=== PATIENT | female | born 1945 | race Caucasian/White ===

== ENCOUNTER 2025-07-19 16:32 | Inpatient (IN) ==
[2025-07-19] MEDS: CEFEPIME 2000MG 2,000 MG/20 ML SYR IV STA (16:59)
--- NOTE | 2025-07-19 17:02 | Emergency Department Note ---
History of Present Illness General Chief complaint: Illness Stated complaint: Illness Time Seen by Provider: 07/19/25 16:41 Source: EMS and old records reviewed Mode of arrival: EMS Limitations: altered mental status (h/o dementia ) History of Present Illness Patient is an 79-year-old female with history of aortic valve stenosis, cognitive impairment, peripheral vascular disease, RA, CKD, hypertension who presents for incontinence of urine and stool as well as fever at [facility] today. Tmax of 101.2 Fahrenheit. Patient is unable to provide any history currently due to underlying dementia. It is reported she was more confused than her baseline from staff. No reported trauma or head injury. Home Medications Medication Instructions Recorded Confirmed Type acetaminophen 325 mg tablet 650 mg PO Q4H PRN PAIN/FEVER 07/19/25 07/19/25 History (Tylenol) calcium 600 mg (as 2 tab PO DAILY 07/19/25 07/19/25 History carbonate)-vitamin D3 10 mcg (400 unit) tablet (Calcium 600 + D(3)) fluoxetine 20 mg capsule 20 mg PO DAILY 07/19/25 07/19/25 History furosemide 40 mg tablet 40 mg PO DAILY 07/19/25 07/19/25 History loperamide 2 mg capsule 2 mg PO Q8H PRN AFTER LOOSE STOOLS 07/19/25 07/19/25 History losartan 25 mg tablet 25 mg PO DAILY 07/19/25 07/19/25 History melatonin 5 mg capsule 5 mg PO HS 07/19/25 07/19/25 History multivitamin 1 tab PO DAILY 07/19/25 07/19/25 History oxymetazoline 0.05 % nasal spray 2 spray intranasal QID PRN NOSE 07/19/25 07/19/25 History (Nasal Decongestant BLEEDS (oxymetazoline)) potassium chloride 20 mEq 20 meq PO DAILY 07/19/25 07/19/25 History tablet,extended release(part/cryst) sodium chloride 0.65 % nasal spray 1 spray intranasal 5XD 07/19/25 07/19/25 History aerosol (Saline Nasal) Allergies Allergy/AdvReac Type Severity Reaction Status Date / Time BENITO Inhibitors Allergy Unknown ON Verified 07/19/25 20:26 [facility] flecainide Allergy Unknown ON Verified 07/19/25 20:26 [facility] Past Med/Surg History Problem List (Updated 07/20/25 @ 16:02 by Reinaldo Thompson MD) Fever (Acute) Medical History Anticoagulated on Coumadin Social History Smoking Status: Unknown if ever smoked Preferred Language: [place] Communication Ability: Effective Armament Repairer Required: No Beliefs That Will Affect Care: None Current Living Situation: Personal Care Facility Feels Safe at Home: Yes Assistive Devices: None Review of Systems Unable to obtain ROS secondary to underlying dementia and altered mental status Physical Exam Vital Signs Vital Signs - 24 hr 07/19/25 16:37 07/19/25 17:05 07/19/25 18:18 Temperature 38.5 C H Temperature Source Oral Pulse Rate 78 76 75 Pulse Rate from SpO2 Sensor 77 Respiratory Rate 20 22 Respiratory Effort / Characteristics Non-Labored Spontaneous Respiratory Depth Normal Respiratory Pattern Regular Blood Pressure 125/90 Blood Pressure Mean 101 Pulse Oximetry 92 90 Oxygen Delivery Method Room Air Room Air Oxygen Flow Rate Sepsis Recent Fever Within 48 Hours Yes Sepsis New/Unexplained Change in Mental Status Yes Sepsis Action Taken by Nursing Physician Notified Oxygen Flow Rate - Titration Pulse Oximetry Post Tiitration 07/19/25 18:30 07/19/25 18:33 07/19/25 18:34 Temperature Temperature Source Pulse Rate 75 75 Pulse Rate from SpO2 Sensor 75 75 Respiratory Rate 26 H 24 Respiratory Effort / Characteristics Respiratory Depth Respiratory Pattern Blood Pressure 98/55 L Blood Pressure Mean 70 Pulse Oximetry 91 90 Oxygen Delivery Method Room Air Room Air Oxygen Flow Rate Sepsis Recent Fever Within 48 Hours Sepsis New/Unexplained Change in Mental Status Sepsis Action Taken by Nursing Oxygen Flow Rate - Titration Pulse Oximetry Post Tiitration 07/19/25 18:34 07/19/25 18:34 07/19/25 18:34 Temperature Temperature Source Pulse Rate Pulse Rate from SpO2 Sensor Respiratory Rate Respiratory Effort / Characteristics Respiratory Depth Respiratory Pattern Blood Pressure 98/55 L 98/55 L 98/55 L Blood Pressure Mean 70 70 70 Pulse Oximetry Oxygen Delivery Method Oxygen Flow Rate Sepsis Recent Fever Within 48 Hours Sepsis New/Unexplained Change in Mental Status Sepsis Action Taken by Nursing Oxygen Flow Rate - Titration Pulse Oximetry Post Tiitration 07/19/25 18:34 07/19/25 18:36 07/19/25 18:42 Temperature Temperature Source Pulse Rate 75 75 Pulse Rate from SpO2 Sensor 76 75 Respiratory Rate 20 22 Respiratory Effort / Characteristics Respiratory Depth Respiratory Pattern Blood Pressure 98/55 L Blood Pressure Mean 70 Pulse Oximetry 89 L Oxygen Delivery Method Oxygen Flow Rate Sepsis Recent Fever Within 48 Hours Sepsis New/Unexplained Change in Mental Status Sepsis Action Taken by Nursing Oxygen Flow Rate - Titration Pulse Oximetry Post Tiitration 07/19/25 18:51 07/19/25 19:00 07/19/25 19:00 Temperature Temperature Source Pulse Rate 75 Pulse Rate from SpO2 Sensor 75 Respiratory Rate 22 Respiratory Effort / Characteristics Respiratory Depth Respiratory Pattern Blood Pressure 120/57 L 120/57 L Blood Pressure Mean 71 71 Pulse Oximetry 93 Oxygen Delivery Method Oxygen Flow Rate Sepsis Recent Fever Within 48 Hours Sepsis New/Unexplained Change in Mental Status Sepsis Action Taken by Nursing Oxygen Flow Rate - Titration Pulse Oximetry Post Tiitration 07/19/25 19:00 07/19/25 19:00 07/19/25 19:00 Temperature Temperature Source Pulse Rate Pulse Rate from SpO2 Sensor Respiratory Rate Respiratory Effort / Characteristics Respiratory Depth Respiratory Pattern Blood Pressure 120/57 L 120/57 L 120/57 L Blood Pressure Mean 71 71 71 Pulse Oximetry Oxygen Delivery Method Oxygen Flow Rate Sepsis Recent Fever Within 48 Hours Sepsis New/Unexplained Change in Mental Status Sepsis Action Taken by Nursing Oxygen Flow Rate - Titration Pulse Oximetry Post Tiitration 07/19/25 19:00 07/19/25 19:12 07/19/25 19:21 Temperature Temperature Source Pulse Rate 75 75 75 Pulse Rate from SpO2 Sensor 76 75 75 Respiratory Rate 20 22 22 Respiratory Effort / Characteristics Respiratory Depth Respiratory Pattern Blood Pressure Blood Pressure Mean Pulse Oximetry 89 L 90 90 Oxygen Delivery Method Oxygen Flow Rate Sepsis Recent Fever Within 48 Hours Sepsis New/Unexplained Change in Mental Status Sepsis Action Taken by Nursing Oxygen Flow Rate - Titration Pulse Oximetry Post Tiitration 07/19/25 19:30 07/19/25 19:30 07/19/25 19:30 Temperature Temperature Source Pulse Rate Pulse Rate from SpO2 Sensor Respiratory Rate Respiratory Effort / Characteristics Respiratory Depth Respiratory Pattern Blood Pressure 97/56 L 97/56 L 97/56 L Blood Pressure Mean 74 74 74 Pulse Oximetry Oxygen Delivery Method Oxygen Flow Rate Sepsis Recent Fever Within 48 Hours Sepsis New/Unexplained Change in Mental Status Sepsis Action Taken by Nursing Oxygen Flow Rate - Titration Pulse Oximetry Post Tiitration 07/19/25 19:30 07/19/25 19:30 07/19/25 19:30 Temperature Temperature Source Pulse Rate 75 Pulse Rate from SpO2 Sensor 76 Respiratory Rate 17 Respiratory Effort / Characteristics Respiratory Depth Respiratory Pattern Blood Pressure 97/56 L 97/56 L Blood Pressure Mean 74 74 Pulse Oximetry 89 L Oxygen Delivery Method Oxygen Flow Rate Sepsis Recent Fever Within 48 Hours Sepsis New/Unexplained Change in Mental Status Sepsis Action Taken by Nursing Oxygen Flow Rate - Titration Pulse Oximetry Post Tiitration 07/19/25 19:42 07/19/25 19:51 07/19/25 19:51 Temperature Temperature Source Pulse Rate 75 Pulse Rate from SpO2 Sensor 76 Respiratory Rate 21 Respiratory Effort / Characteristics Respiratory Depth Respiratory Pattern Blood Pressure 93/62 L 93/62 L Blood Pressure Mean 68 68 Pulse Oximetry 90 Oxygen Delivery Method Oxygen Flow Rate Sepsis Recent Fever Within 48 Hours Sepsis New/Unexplained Change in Mental Status Sepsis Action Taken by Nursing Oxygen Flow Rate - Titration Pulse Oximetry Post Tiitration 07/19/25 19:51 07/19/25 19:51 07/19/25 19:51 Temperature Temperature Source Pulse Rate Pulse Rate from SpO2 Sensor Respiratory Rate Respiratory Effort / Characteristics Respiratory Depth Respiratory Pattern Blood Pressure 93/62 L 93/62 L 93/62 L Blood Pressure Mean 68 68 68 Pulse Oximetry Oxygen Delivery Method Oxygen Flow Rate Sepsis Recent Fever Within 48 Hours Sepsis New/Unexplained Change in Mental Status Sepsis Action Taken by Nursing Oxygen Flow Rate - Titration Pulse Oximetry Post Tiitration 07/19/25 19:51 07/19/25 20:00 07/19/25 20:01 Temperature Temperature Source Pulse Rate 75 77 Pulse Rate from SpO2 Sensor 75 75 Respiratory Rate 19 17 Respiratory Effort / Characteristics Respiratory Depth Respiratory Pattern Blood Pressure 94/58 L Blood Pressure Mean 68 Pulse Oximetry 93 96 Oxygen Delivery Method Oxygen Flow Rate Sepsis Recent Fever Within 48 Hours Sepsis New/Unexplained Change in Mental Status Sepsis Action Taken by Nursing Oxygen Flow Rate - Titration Pulse Oximetry Post Tiitration 07/19/25 20:01 07/19/25 20:01 07/19/25 20:01 Temperature Temperature Source Pulse Rate Pulse Rate from SpO2 Sensor Respiratory Rate Respiratory Effort / Characteristics Respiratory Depth Respiratory Pattern Blood Pressure 94/58 L 94/58 L 94/58 L Blood Pressure Mean 68 68 68 Pulse Oximetry Oxygen Delivery Method Oxygen Flow Rate Sepsis Recent Fever Within 48 Hours Sepsis New/Unexplained Change in Mental Status Sepsis Action Taken by Nursing Oxygen Flow Rate - Titration Pulse Oximetry Post Tiitration 07/19/25 20:01 07/19/25 20:12 07/19/25 20:21 Temperature Temperature Source Pulse Rate 75 77 Pulse Rate from SpO2 Sensor 74 77 Respiratory Rate 23 18 Respiratory Effort / Characteristics Respiratory Depth Respiratory Pattern Blood Pressure 94/58 L Blood Pressure Mean 68 Pulse Oximetry 97 96 Oxygen Delivery Method Oxygen Flow Rate Sepsis Recent Fever Within 48 Hours Sepsis New/Unexplained Change in Mental Status Sepsis Action Taken by Nursing Oxygen Flow Rate - Titration Pulse Oximetry Post Tiitration 07/19/25 20:30 07/19/25 20:31 07/19/25 20:31 Temperature Temperature Source Pulse Rate 75 Pulse Rate from SpO2 Sensor 75 Respiratory Rate 24 Respiratory Effort / Characteristics Respiratory Depth Respiratory Pattern Blood Pressure 82/49 L 82/49 L Blood Pressure Mean 62 62 Pulse Oximetry 97 Oxygen Delivery Method Oxygen Flow Rate Sepsis Recent Fever Within 48 Hours Sepsis New/Unexplained Change in Mental Status Sepsis Action Taken by Nursing Oxygen Flow Rate - Titration Pulse Oximetry Post Tiitration 07/19/25 20:31 07/19/25 20:31 07/19/25 20:31 Temperature Temperature Source Pulse Rate Pulse Rate from SpO2 Sensor Respiratory Rate Respiratory Effort / Characteristics Respiratory Depth Respiratory Pattern Blood Pressure 82/49 L 82/49 L 82/49 L Blood Pressure Mean 62 62 62 Pulse Oximetry Oxygen Delivery Method Oxygen Flow Rate Sepsis Recent Fever Within 48 Hours Sepsis New/Unexplained Change in Mental Status Sepsis Action Taken by Nursing Oxygen Flow Rate - Titration Pulse Oximetry Post Tiitration 07/19/25 20:42 07/19/25 20:42 07/19/25 20:42 Temperature Temperature Source Pulse Rate 75 75 Pulse Rate from SpO2 Sensor 75 Respiratory Rate 22 Respiratory Effort / Characteristics Respiratory Depth Respiratory Pattern Blood Pressure 90/56 L Blood Pressure Mean 74 Pulse Oximetry 97 Oxygen Delivery Method Oxygen Flow Rate Sepsis Recent Fever Within 48 Hours Sepsis New/Unexplained Change in Mental Status Sepsis Action Taken by Nursing Oxygen Flow Rate - Titration Pulse Oximetry Post Tiitration 07/19/25 20:42 07/19/25 20:42 07/19/25 20:42 Temperature Temperature Source Pulse Rate Pulse Rate from SpO2 Sensor Respiratory Rate Respiratory Effort / Characteristics Respiratory Depth Respiratory Pattern Blood Pressure 90/56 L 90/56 L 90/56 L Blood Pressure Mean 74 74 74 Pulse Oximetry Oxygen Delivery Method Oxygen Flow Rate Sepsis Recent Fever Within 48 Hours Sepsis New/Unexplained Change in Mental Status Sepsis Action Taken by Nursing Oxygen Flow Rate - Titration Pulse Oximetry Post Tiitration 07/19/25 20:42 07/19/25 20:51 07/19/25 21:00 Temperature Temperature Source Pulse Rate 75 75 Pulse Rate from SpO2 Sensor 75 75 Respiratory Rate 24 19 Respiratory Effort / Characteristics Respiratory Depth Respiratory Pattern Blood Pressure 90/56 L Blood Pressure Mean 74 Pulse Oximetry 97 96 Oxygen Delivery Method Oxygen Flow Rate Sepsis Recent Fever Within 48 Hours Sepsis New/Unexplained Change in Mental Status Sepsis Action Taken by Nursing Oxygen Flow Rate - Titration Pulse Oximetry Post Tiitration 07/19/25 21:01 07/19/25 21:01 07/19/25 21:01 Temperature Temperature Source Pulse Rate Pulse Rate from SpO2 Sensor Respiratory Rate Respiratory Effort / Characteristics Respiratory Depth Respiratory Pattern Blood Pressure 88/56 L 88/56 L 88/56 L Blood Pressure Mean 61 61 61 Pulse Oximetry Oxygen Delivery Method Oxygen Flow Rate Sepsis Recent Fever Within 48 Hours Sepsis New/Unexplained Change in Mental Status Sepsis Action Taken by Nursing Oxygen Flow Rate - Titration Pulse Oximetry Post Tiitration 07/19/25 21:01 07/19/25 21:01 07/19/25 21:12 Temperature Temperature Source Pulse Rate 75 Pulse Rate from SpO2 Sensor 76 Respiratory Rate 17 Respiratory Effort / Characteristics Respiratory Depth Respiratory Pattern Blood Pressure 88/56 L 88/56 L Blood Pressure Mean 61 61 Pulse Oximetry 93 Oxygen Delivery Method Oxygen Flow Rate Sepsis Recent Fever Within 48 Hours Sepsis New/Unexplained Change in Mental Status Sepsis Action Taken by Nursing Oxygen Flow Rate - Titration Pulse Oximetry Post Tiitration 07/19/25 21:21 07/19/25 21:27 07/19/25 21:29 Temperature Temperature Source Pulse Rate 75 75 Pulse Rate from SpO2 Sensor 75 76 Respiratory Rate 22 22 Respiratory Effort / Characteristics Respiratory Depth Respiratory Pattern Blood Pressure 99/54 L Blood Pressure Mean 68 Pulse Oximetry 96 95 Oxygen Delivery Method Oxygen Flow Rate Sepsis Recent Fever Within 48 Hours Sepsis New/Unexplained Change in Mental Status Sepsis Action Taken by Nursing Oxygen Flow Rate - Titration Pulse Oximetry Post Tiitration 07/19/25 21:30 07/19/25 21:30 07/19/25 21:30 Temperature Temperature Source Pulse Rate Pulse Rate from SpO2 Sensor Respiratory Rate Respiratory Effort / Characteristics Respiratory Depth Respiratory Pattern Blood Pressure 98/62 L 98/62 L 98/62 L Blood Pressure Mean 74 74 74 Pulse Oximetry Oxygen Delivery Method Oxygen Flow Rate Sepsis Recent Fever Within 48 Hours Sepsis New/Unexplained Change in Mental Status Sepsis Action Taken by Nursing Oxygen Flow Rate - Titration Pulse Oximetry Post Tiitration 07/19/25 21:30 07/19/25 21:30 07/19/25 21:30 Temperature Temperature Source Pulse Rate 75 Pulse Rate from SpO2 Sensor 76 Respiratory Rate 20 Respiratory Effort / Characteristics Respiratory Depth Respiratory Pattern Blood Pressure 98/62 L 98/62 L Blood Pressure Mean 74 74 Pulse Oximetry 96 Oxygen Delivery Method Oxygen Flow Rate Sepsis Recent Fever Within 48 Hours Sepsis New/Unexplained Change in Mental Status Sepsis Action Taken by Nursing Oxygen Flow Rate - Titration Pulse Oximetry Post Tiitration 07/19/25 21:35 07/19/25 21:42 07/19/25 21:51 Temperature Temperature Source Pulse Rate 75 75 Pulse Rate from SpO2 Sensor 75 75 Respiratory Rate 22 22 Respiratory Effort / Characteristics Respiratory Depth Respiratory Pattern Blood Pressure Blood Pressure Mean Pulse Oximetry 88 L 95 92 Oxygen Delivery Method Room Air Oxygen Flow Rate 0 Sepsis Recent Fever Within 48 Hours Sepsis New/Unexplained Change in Mental Status Sepsis Action Taken by Nursing Oxygen Flow Rate - Titration 2 Pulse Oximetry Post Tiitration 92 See below Constitutional WD/WN, vitals as above Eyes PERRL, conjunctivae normal, anicteric sclerae ENMT external ear and nose normal, oropharynx normal Respiratory normal respiratory effort, lungs clear to auscultation Cardiovascular RRR, no murmur, no edema Chest (Breasts) normal inspection/palpation of breasts Gastrointestinal (Abdomen) normal bowel sounds, soft, nontender, no hepatosplenomegaly Musculoskeletal no cyanosis or clubbing, extremities motor strength 5/5 Skin no rashes, warm and dry Neurologic awake and + confused; no focal motor deficit Speech / Cognition: normal speech Course Administered Medications Calcium/Vitamin D (Calcium 600mg + Vit D 400 Iu Tab) 2 tab PO DAILY [facility] Stop: 08/19/25 08:59 Last Admin: 07/20/25 11:09 Dose: 2 tab Documented By: sandeep Fluoxetine HCl (Fluoxetine Hcl 20 Mg Cap) 20 mg PO DAILY RICKY Stop: 08/19/25 08:59 Last Admin: 07/20/25 11:09 Dose: 20 mg Documented By: sandeep Furosemide (Furosemide 40 Mg Tab) 40 mg PO DAILY RICKY Stop: 08/19/25 08:59 Last Admin: 07/20/25 11:11 Dose: 40 mg Documented By: sandeep Heparin Sodium (Porcine) (Heparin Sod 5,000 Unit/0.5 Ml Vial) 5,000 units SQ Q12 RICKY Stop: 08/19/25 08:59 Last Admin: 07/20/25 11:10 Dose: 5,000 units Documented By: sandeep Multivitamins (Multivitamin Tab) 1 tab PO DAILY RICKY Stop: 08/19/25 08:59 Last Admin: 07/20/25 11:10 Dose: 1 tab Documented By: sandeep Potassium Chloride (Potassium Chloride Crtab 20 Meq Tabcr) 20 meq PO DAILY RICKY Stop: 08/19/25 08:59 Last Admin: 07/20/25 11:11 Dose: 20 meq Documented By: sandeep Sodium Chloride (Sodium Chloride 0.65% Na Soln 45 Ml ([place])) 1 sprays NA [id number] [facility] Stop: 08/19/25 00:45 Last Admin: 07/20/25 15:14 Dose: 1 sprays Documented By: Admin: 07/20/25 14:35 Dose: 1 sprays Documented By: sandeep Admin: 07/20/25 11:09 Dose: 1 sprays Documented By: sandeep Admin: 07/20/25 03:31 Dose: Not Given Documented By: NATASHA Discontinued Medications Sodium Chloride (Nss) 1,000 mls @ 999 mls/hr IV .Q1H1M [facility] Stop: 07/19/25 18:00 Last Infusion: 07/19/25 18:36 Dose: Infused Documented By: Admin: 07/19/25 17:05 Dose: 999 mls/hr Documented By: KIM Cefepime HCl (Maxipime 2000mg) 2,000 mg in 20 mls @ 5 mls/min IV NOW STA; Protocol Stop: 07/19/25 16:54 Last Admin: 07/19/25 16:59 Dose: 5 mls/min Documented By: KIM Acetaminophen (Ofirmev) 1,000 mg in 100 mls @ 400 mls/hr IV NOW STA Stop: 07/19/25 17:19 Last Infusion: 07/19/25 17:40 Dose: Infused Documented By: Admin: 07/19/25 17:13 Dose: 400 mls/hr Documented By: KIM Sodium Chloride (Nss) 250 mls @ 999 mls/hr IV .Q16M ONE Stop: 07/19/25 22:10 Last Infusion: 07/19/25 22:53 Dose: Infused Documented By: Admin: 07/19/25 22:20 Dose: 999 mls/hr Documented By: MILLY Dextrose/Sodium Chloride (D5w And 1/2nss) 1,000 mls @ 50 mls/hr IV .Q20H RICKY Stop: 07/20/25 20:45 Last Infusion: 07/20/25 15:13 Dose: Infused Documented By: Admin: 07/20/25 02:18 Dose: 50 mls/hr Documented By: NATASHA Ioversol (Optiray 320 100ml) 93 ml IV ONCE ONE Stop: 07/19/25 18:09 Last Admin: 07/19/25 18:09 Dose: 93 ml Documented By: LESA Medical Decision Making Differential Diagnosis DDx includes but not limited to: sepsis, UTI, PNA, intra-abdominal infection, CHF exacerbation, NTEMI Medical Records Attestation: I reviewed the patient's medical records. Home Medications Current Medication List: was personally reviewed by me Laboratory Data Attestation: I reviewed the patient's lab results. 07/20/25 05:39 07/20/25 05:39 Lab Results 07/19/25 07/19/25 07/19/25 Range/Units 16:30 16:30 16:30 WBC (4.8-10.8) K/ul RBC (4.20-5.40) M/uL Hgb (12.0-16.0) g/dL Hct (37.0-47.0) % MCV (80.0-100.0) fL MCH (25.0-34.0) pg MCHC (32.0-36.0) g/dL RDW Std Deviation (36.4-46.3) fL RDW Coeff of Mikhail (11.5-14.5) % Plt Count (130-400) K/uL MPV (9.4-12.4) fL Immature Gran % (Auto) % Neut % (Auto) % Lymph % (Auto) % [place] % (Auto) % Eos % (Auto) % Baso % (Auto) % Neut # (Auto) (1.40-6.50) K/uL Lymph # (Auto) (1.20-3.40) K/uL [place] # (Auto) (0.11-0.59) K/uL Eos # (Auto) (0.00-0.50) K/uL Baso # (Auto) (0.00-0.20) K/uL Immature Gran # (Auto) (0.01-0.20) K/uL Sodium (136-145) mmol/L Potassium (3.5-5.1) mmol/L Chloride (98-107) mmol/L Carbon Dioxide (21-32) mmol/L Anion Gap (3-11) BUN (6-23) mg/dl Creatinine (0.6-1.2) mg/dl Est Cr Clr Drug Dosing eGFR BUN/Creatinine Ratio (10-20) Glucose (70-99(Fasting)) mg/dl Lactate (0.4-2.0) mmol/L Calcium (8.6-10.3) mg/dl Magnesium (1.7-2.4) mg/dl Total Bilirubin (0.2-1.0) mg/dl Direct Bilirubin (0-0.2) mg/dl AST (13-39) U/L ALT (7-52) U/L Alkaline Phosphatase (34-104) U/L Troponin I High Sens (0-14) pg/ml Total Protein (6.0-8.3) gm/dl Albumin (3.4-5.0) gm/dl Procalcitonin (0-0.5) ng/ml Adenovirus (PCR) Not Detected (NotDetected) B. pertussis DNA (PCR) Not Detected (NotDetected) B.parapertussis DNA PCR Not Detected (NotDetected) C. pneumoniae DNA (PCR) Not Detected (NotDetected) Coronavirus OC43 (PCR) Not Detected (NotDetected) Coronavirus HKU1 (PCR) Not Detected (NotDetected) Coronavirus 229E (PCR) Not Detected (NotDetected) SARS-CoV-2 (PCR) NEGATIVE Not Detected (Negative) Coronavirus NL63 (PCR) Not Detected (NotDetected) Human Metapneumovir PCR Not Detected (NotDetected) Influenza Type A (PCR) Negative Not Detected (Neg) Influenza Type B (PCR) Negative (Neg) M. pneumoniae (PCR) (NotDetected) Parainfluenza 1 (PCR) (NotDetected) Parainfluenza 2 (PCR) (NotDetected) Parainfluenza 3 (PCR) (NotDetected) Parainfluenza 4 (PCR) (NotDetected) RSV (RT-PCR) (Neg) RSV (PCR) (NotDetected) Entero/Rhino (PCR) (NotDetected) 07/19/25 07/19/25 07/19/25 Range/Units 16:30 16:56 19:14 WBC 9.51 (4.8-10.8) K/ul RBC 3.74 L (4.20-5.40) M/uL Hgb 12.6 (12.0-16.0) g/dL Hct 37.3 (37.0-47.0) % MCV 99.7 (80.0-100.0) fL MCH 33.7 (25.0-34.0) pg MCHC 33.8 (32.0-36.0) g/dL RDW Std Deviation 51.6 H (36.4-46.3) fL RDW Coeff of Mikhail 14.1 (11.5-14.5) % Plt Count 133 (130-400) K/uL MPV 9.9 (9.4-12.4) fL Immature Gran % (Auto) 0.4 % Neut % (Auto) 84.9 % Lymph % (Auto) 5.2 % [place] % (Auto) 9.3 % Eos % (Auto) 0.0 % Baso % (Auto) 0.2 % Neut # (Auto) 8.08 H (1.40-6.50) K/uL Lymph # (Auto) 0.49 L (1.20-3.40) K/uL [place] # (Auto) 0.88 H (0.11-0.59) K/uL Eos # (Auto) 0.00 (0.00-0.50) K/uL Baso # (Auto) 0.02 (0.00-0.20) K/uL Immature Gran # (Auto) 0.04 (0.01-0.20) K/uL Sodium 133 L (136-145) mmol/L Potassium 4.4 (3.5-5.1) mmol/L Chloride 101 (98-107) mmol/L Carbon Dioxide 19 L (21-32) mmol/L Anion Gap 13 H (3-11) BUN 22 (6-23) mg/dl Creatinine 1.09 (0.6-1.2) mg/dl Est Cr Clr Drug Dosing Not Reportable eGFR 51.36 BUN/Creatinine Ratio 20.2 H (10-20) Glucose 134 H (70-99(Fasting)) mg/dl Lactate 1.8 (0.4-2.0) mmol/L Calcium 9.7 (8.6-10.3) mg/dl Magnesium 2.0 (1.7-2.4) mg/dl Total Bilirubin 2.1 H (0.2-1.0) mg/dl Direct Bilirubin 0.7 H (0-0.2) mg/dl AST 30 (13-39) U/L ALT 11 (7-52) U/L Alkaline Phosphatase 66 (34-104) U/L Troponin I High Sens 44.9 H 55.9 H* D (0-14) pg/ml Total Protein 7.9 (6.0-8.3) gm/dl Albumin 4.6 (3.4-5.0) gm/dl Procalcitonin 0.07 (0-0.5) ng/ml Adenovirus (PCR) (NotDetected) B. pertussis DNA (PCR) (NotDetected) B.parapertussis DNA PCR (NotDetected) C. pneumoniae DNA (PCR) (NotDetected) Coronavirus OC43 (PCR) (NotDetected) Coronavirus HKU1 (PCR) (NotDetected) Coronavirus 229E (PCR) (NotDetected) SARS-CoV-2 (PCR) (Negative) Coronavirus NL63 (PCR) (NotDetected) Human Metapneumovir PCR (NotDetected) Influenza Type A (PCR) (Neg) Influenza Type B (PCR) Not Detected (Neg) M. pneumoniae (PCR) Not Detected (NotDetected) Parainfluenza 1 (PCR) Not Detected (NotDetected) Parainfluenza 2 (PCR) Not Detected (NotDetected) Parainfluenza 3 (PCR) Not Detected (NotDetected) Parainfluenza 4 (PCR) Not Detected (NotDetected) RSV (RT-PCR) Negative (Neg) RSV (PCR) Not Detected (NotDetected) Entero/Rhino (PCR) Not Detected (NotDetected) ECG Data Attestation: I personally reviewed and interpreted this ECG as follows: Indication: + altered mental status Rate (beats per minute): 75 Rhythm: + other (AV paced rhythm ) ECG Intervals/blocks: + IVCD, + Prolonged QT and + Normal IA ECG [place]: + Right axis deviation ECG ST segments: + Normal ST segments Comparison ECG Date: no prior available Blood Pressure Blood Pressure Findings: Normal blood pressure MDM Narrative Impression & Plan Fever Discharge Plan Visit Data Chief Complaint: Illness Stated Complaint: Illness ED Provider: Reinaldo Thompson Discharge Problem: Fever Patient Disposition: Admitted As Inpatient Condition: Good Discharge Instructions Interventions: ED Discharge Assessment Last Done: 07/20/25 00:48
[2025-07-19] MEDS: SODIUM CHLORIDE 0.9% 1,000 ML IV SCH (17:05)
[2025-07-19 17:11] LABS: Hematocrit (blood only) 37.3 % (37.0-47.0); Hemoglobin 12.6 g/dL (12.0-16.0); Immature Granulocytes # (auto) 0.04 K/uL (0.01-0.20); Immature Granulocytes % (auto) 0.4 %; Mean Corpuscular Hemoglobin 33.7 pg (25.0-34.0); Mean Corpuscular Volume 99.7 fL (80.0-100.0); Platelet Count 133 K/uL (130-400); RDW Standard Deviation 51.6 fL (36.4-46.3); Red Blood Count 3.74 M/uL (4.20-5.40); White Blood Count 9.51 K/ul (4.8-10.8)
[2025-07-19] MEDS: ACETAMINOPHEN 1,000 MG/100 ML VIAL IV STA (17:13)
[2025-07-19 17:18] LABS: Appearance Urine Clear (Clear); Bacteria Urine Automated None Seen (None Seen); Epithelial Cell Urine Auto 0-2 /hpf (0-2); Glucose Urine UA Negative (Negative); RBC Urine Automated 0-2 /hpf (0-2); WBC Urine Automated 0-5 /hpf (0-5)
[2025-07-19 17:29] LABS: Alanine Aminotransferase 11 U/L (7-52); Albumin Level 4.6 gm/dl (3.4-5.0); Alkaline Phosphatase 66 U/L (34-104); Anion Gap 13 (3-11); Bilirubin,Total 2.1 mg/dl (0.2-1.0); Blood Urea Nitrogen 22 mg/dl (6-23); Calcium 9.7 mg/dl (8.6-10.3); Carbon Dioxide 19 mmol/L (21-32); Chloride 101 mmol/L (98-107); Glucose 134 mg/dl (70-99(Fasting)); Magnesium 2.0 mg/dl (1.7-2.4); Potassium 4.4 mmol/L (3.5-5.1); Sodium 133 mmol/L (136-145); Total Protein 7.9 gm/dl (6.0-8.3)
[2025-07-19 17:32] LABS: Influenza A virus by PCR Negative (Neg); Influenza B virus by PCR Negative (Neg); SARS CoV2 RNA(COVID-19) Ceph NEGATIVE (Negative)
[2025-07-19] MEDS: OPTIRAY 320 100ml IV ONE (18:09)
[2025-07-19 18:36] LABS: Chlamydia pneumoniae PCR Not Detected (NotDetected); Coronavirus 229E PCR Not Detected (NotDetected); Coronavirus CoV-2 (COVID19)PCR Not Detected (NotDetected); Coronavirus HKU1 PCR Not Detected (NotDetected); Coronavirus NL63 PCR Not Detected (NotDetected); Coronavirus OC43PCR Not Detected (NotDetected); Human Metapneumovirus PCR Not Detected (NotDetected); Parainfluenza Virus 1 PCR Not Detected (NotDetected); Parainfluenza Virus 2 PCR Not Detected (NotDetected); Parainfluenza Virus 3 PCR Not Detected (NotDetected); Parainfluenza Virus 4 PCR Not Detected (NotDetected); Respiratory Syncytial VirusPCR Not Detected (NotDetected); Rhinovirus/Enterovirus PCR Not Detected (NotDetected)
--- NOTE | 2025-07-19 18:52 | XRay Report ---
EXAM: X-ray chest one-view portable CLINICAL HISTORY: Sepsis PRIORS: CT chest today TECHNIQUE: Frontal view chest FINDINGS: The chest is well-expanded. Severe enlargement of the cardiac silhouette with postsurgical change including median sternotomy wires, prostatic cardiac valve and pacing device. Low-dose Elevation of the right Silvestre diaphragm noted. Osseous demineralization seen. Trachea midline. Osseous structures demonstrate no acute abnormality. No radiopaque foreign body. IMPRESSION: Extreme enlargement of the cardiac silhouette. ACT 112: Positive. There are findings on this examination that require communication between the performing entity and the patient following Patient Test Result Information Act ([place] ACT 112) guidelines. Electronically signed by Bernarda Linares 07-19-2025 6:52 PM
--- NOTE | 2025-07-19 20:20 | CT Scan Report ---
CT of the chest with contrast Technique: Postcontrast axial images of the chest. Coronal and sagittal reformatted images made available for review No comparison Findings: Right chest wall dual-lead intracardiac device Marked cardiomegaly. Postoperative changes median sternotomy. Aortic valve calcification. 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 Mild interlobular septal thickening with diffuse ground glass opacities scattered throughout the lungs bilaterally. No effusions. No lobar consolidations. There are extensive right chest wall venous collaterals sugg consistent with occlusion of the right subclavian vein. The internal jugular vein is patent. Multilevel degenerative changes of the thoracic spine without fracture or dislocation. Impression Findings consistent with mild pulmonary edema. Electronically signed by Alli Kuo 07-19-2025 8:19 PM
--- NOTE | 2025-07-19 20:26 | CT Scan Report ---
CT of the abdomen and pelvis with contrast Technique: Postcontrast axial images of the abdomen and pelvis. Coronal and sagittal reformatted images made well for review. No comparison Findings: Hepatomegaly Splenomegaly. Mild intra-abdominal ascites. Distention of the IVC consistent with pulmonary vas congestion or right heart failure. Gallbladder is within normal limits. Cholelithiasis.Subcentimeter hypodensity left kidney too small for further density characterization but likely representing a cyst thickening of the left adrenal gland. Gastric varices present. Findings suggestive of portal hypertension. Moderate amount of stool within the colon. No free air or intestinal obstruction. Vascular calcifications. Remaining solid abdominal organs are unremarkable in appearance. Bone windows demonstrate no focal abnormality. Multilevel degenerative changes of the lower thoracic and lumbar spine. Impression: Unremarkable exam CT abdomen pelvis negative for acute intra-abdominal pathology Mild intra-abdominal ascites Findings consistent with mild portal hypertension with gastric varices. Electronically signed by Alli Kuo 07-19-2025 8:26 PM
[2025-07-19] MEDS: SODIUM CHLORIDE 0.9% 250 ML IV ONE (22:20)
[2025-07-20] MEDS ORDERED: ONDANSETRON INJ 2 MG/ML 2 ML VIAL IV PRN (00:46)
[2025-07-20] MEDS ORDERED: ACETAMINOPHEN 1,000 MG/100 ML VIAL IV PRN (00:46)
[2025-07-20] MEDS ORDERED: NITROGLYCERIN SL 0.4 MG/TAB TAB SL PRN (00:46)
[2025-07-20] MEDS ORDERED: OXYMETAZOLINE 0.05% 30 ML BTL PRN (00:46)
[2025-07-20] MEDS: D5W AND 1/2NSS 1,000 ML IV SCH (02:18)
[2025-07-20] MEDS: SODIUM CHLORIDE 0.65% NA SOLN 45 ML (OCEAN) SCH (03:31)
--- NOTE | 2025-07-20 05:04 | History & Physical Report ---
Date of Service July 19, 2025 Assessment & Plan (1) Fever: Plan: 79-year-old female with past medical history significant for congenital stenosis of aortic valve, peripheral vascular disease, rheumatoid arthritis, chronic kidney disease, hypertension, osteoarthritis, history of a flutter, s/p cardiac pacemaker, history of mechanical heart valve who is currently living at dementia unit in [facility] was brought in because of fevers and diarrhea. As per intermediate patient was having fevers today and also incontinent of the stool and nauseous but no vomiting which prompted the intermediate to send the patient to the ER. As per intermediate the patient knows her name and sometimes knows the place. Ambulates without support. Eats okay. Currently patient tell her name. Denies any pain. Could not get any history from the patient. Able to update son later in am. Fevers Diarrhea Respiratory BioFire negative UA negative CT chest and CT abdomen pelvis no acute findings Procalcitonin negative Received empiric cefepime in the ER Will follow cultures Will follow stool sample Gentle fluids IV Tylenol. Close monitor Dementia Currently residing at dementia unit in [facility] Will monitor for delirium History of CHF Getting gentle fluids Continue home Lasix with potassium supplements Hypertension Holding losartan as blood pressure is soft On Lasix Will monitor History of mechanical valve replacement Used to be on Coumadin Checked with intermediate currently she is not on Coumadin Son not sure exactly but thinks had another surgery and valve replaced and thinks since then not on Coumadin Mild elevation of troponin Initial troponin 44 and repeat is 55 Will follow serial enzymes and echo Depression On fluoxetine DVT prophylaxis Heparin subcu Disposition Med/telemetry CODE STATUS DNR/DNI and comfort measures only but okay for antibiotics as per POLST form. Son confirms DNR. History of Present Illness Chief Complaint: Fevers and diarrhea Primary Care Provider: [facility] 79-year-old female with past medical history significant for congenital stenosis of aortic valve, peripheral vascular disease, rheumatoid arthritis, chronic kidney disease, hypertension, osteoarthritis, history of a flutter, s/p cardiac pacemaker, history of mechanical heart valve who is currently living at dementia unit in [facility] home was brought in because of fevers and diarrhea. As per intermediate patient was having fevers today and also incontinent of the stool and nauseous but no vomiting which prompted the intermediate to send the patient to the ER. As per intermediate the patient knows her name and sometimes knows the place. Ambulates without support. Eats okay. Currently patient tell her name. Denies any pain. Could not get any history from the patient. Able to update son later in am. Past medical history. As mentioned above. Past surgical history. Pacemaker. Social history. Unavailable Family history. No available Allergies Allergy/AdvReac Type Severity Reaction Status Date / Time BENITO Inhibitors Allergy Unknown ON Verified 07/19/25 20:26 [facility] flecainide Allergy Unknown ON Verified 07/19/25 20:26 [facility] Home Medications Medication Instructions Recorded Confirmed Type acetaminophen 325 mg tablet 650 mg PO Q4H PRN PAIN/FEVER 07/19/25 07/19/25 History (Tylenol) calcium 600 mg (as 2 tab PO DAILY 07/19/25 07/19/25 History carbonate)-vitamin D3 10 mcg (400 unit) tablet (Calcium 600 + D(3)) fluoxetine 20 mg capsule 20 mg PO DAILY 07/19/25 07/19/25 History furosemide 40 mg tablet 40 mg PO DAILY 07/19/25 07/19/25 History loperamide 2 mg capsule 2 mg PO Q8H PRN AFTER LOOSE STOOLS 07/19/25 07/19/25 History losartan 25 mg tablet 25 mg PO DAILY 07/19/25 07/19/25 History melatonin 5 mg capsule 5 mg PO HS 07/19/25 07/19/25 History multivitamin 1 tab PO DAILY 07/19/25 07/19/25 History oxymetazoline 0.05 % nasal spray 2 spray intranasal QID PRN NOSE 07/19/25 07/19/25 History (Nasal Decongestant BLEEDS (oxymetazoline)) potassium chloride 20 mEq 20 meq PO DAILY 07/19/25 07/19/25 History tablet,extended release(part/cryst) sodium chloride 0.65 % nasal spray 1 spray intranasal 5XD 07/19/25 07/19/25 History aerosol (Saline Nasal) Past Med/Surg History Problem List (Updated 07/20/25 @ 05:06 by Danilo Rudolph MD) Fever Medical History Anticoagulated on Coumadin Social History Smoking Status: Unknown if ever smoked Preferred Language: Icelandic Communication Ability: Effective Case Management Director Required: No Beliefs That Will Affect Care: None Current Living Situation: Personal Care Facility Feels Safe at Home: Yes Assistive Devices: Oxygen - Continuous Review of Systems Review of Systems: Unobtainable due to cognitive status Physical Exam Physical Exam: General- Not in acute distress Head- atraumatic Eyes- PERRL. ENT- oropharynx clear Neck- supple, no JVD. Lungs- clear to auscultation no wheezing or crackles Heart- regular rhythm; no murmur, no gallop. Abdomen- normal bowel sounds, soft, nontender, no distension Extremities- no pretibial edema, no erythema seen Neuro- alert, oriented x 1;not obeying commands Results & Data Results & Data Vital Signs (Past 12 Hours) Vital Signs Temp Pulse Resp BP Pulse Ox O2 Del Method 07/19/25 21:42 75 22 95 07/19/25 21:30 75 20 96 07/19/25 21:30 98/62 L 07/19/25 21:30 98/62 L 07/19/25 21:30 98/62 L 07/19/25 21:30 98/62 L 07/19/25 21:30 98/62 L 07/19/25 21:29 99/54 L 07/19/25 21:27 75 22 95 07/19/25 21:21 75 22 96 07/19/25 21:12 75 17 93 07/19/25 21:01 88/56 L 07/19/25 21:01 88/56 L 07/19/25 21:01 88/56 L 07/19/25 21:01 88/56 L 07/19/25 21:01 88/56 L 07/19/25 21:00 75 19 96 07/19/25 20:51 75 24 97 07/19/25 20:42 90/56 L 07/19/25 20:42 90/56 L 07/19/25 20:42 90/56 L 07/19/25 20:42 90/56 L 07/19/25 20:42 90/56 L 07/19/25 20:42 75 22 97 07/19/25 20:42 75 07/19/25 20:31 82/49 L 07/19/25 20:31 82/49 L 07/19/25 20:31 82/49 L 07/19/25 20:31 82/49 L 07/19/25 20:31 82/49 L 07/19/25 20:30 75 24 97 07/19/25 20:21 77 18 96 07/19/25 20:12 75 23 97 07/19/25 20:01 94/58 L 07/19/25 20:01 94/58 L 07/19/25 20:01 94/58 L 07/19/25 20:01 94/58 L 07/19/25 20:01 94/58 L 07/19/25 20:00 77 17 96 07/19/25 19:51 75 19 93 07/19/25 19:51 93/62 L 07/19/25 19:51 93/62 L 07/19/25 19:51 93/62 L 07/19/25 19:51 93/62 L 07/19/25 19:51 93/62 L 07/19/25 19:42 75 21 90 07/19/25 19:30 75 17 89 L 07/19/25 19:30 97/56 L 07/19/25 19:30 97/56 L 07/19/25 19:30 97/56 L 07/19/25 19:30 97/56 L 07/19/25 19:30 97/56 L 07/19/25 19:21 75 22 90 07/19/25 19:12 75 22 90 07/19/25 19:00 75 20 89 L 07/19/25 19:00 120/57 L 07/19/25 19:00 120/57 L 07/19/25 19:00 120/57 L 07/19/25 19:00 120/57 L 07/19/25 19:00 120/57 L 07/19/25 18:51 75 22 93 07/19/25 18:42 75 22 89 L 07/19/25 18:36 75 20 07/19/25 18:34 98/55 L 07/19/25 18:34 98/55 L 07/19/25 18:34 98/55 L 07/19/25 18:34 98/55 L 07/19/25 18:34 98/55 L 07/19/25 18:33 75 24 90 Room Air 07/19/25 18:30 75 26 H 91 Room Air 07/19/25 18:18 75 22 90 Room Air 07/19/25 17:05 38.5 C H 76 20 125/90 92 Room Air 07/19/25 16:37 78 Diagnostic Findings Laboratory Results WBC 9.51 K/ul (4.8-10.8) 07/19/25 16:56 RBC 3.74 M/uL (4.20-5.40) L 07/19/25 16:56 Hgb 12.6 g/dL (12.0-16.0) 07/19/25 16:56 Hct 37.3 % (37.0-47.0) 07/19/25 16:56 MCV 99.7 fL (80.0-100.0) 07/19/25 16:56 MCH 33.7 pg (25.0-34.0) 07/19/25 16:56 MCHC 33.8 g/dL (32.0-36.0) 07/19/25 16:56 RDW Std Deviation 51.6 fL (36.4-46.3) H 07/19/25 16:56 RDW Coeff of Mikhail 14.1 % (11.5-14.5) 07/19/25 16:56 Plt Count 133 K/uL (130-400) 07/19/25 16:56 MPV 9.9 fL (9.4-12.4) 07/19/25 16:56 Immature Gran % (Auto) 0.4 % 07/19/25 16:56 Neut % (Auto) 84.9 % 07/19/25 16:56 Lymph % (Auto) 5.2 % 07/19/25 16:56 [place] % (Auto) 9.3 % 07/19/25 16:56 Eos % (Auto) 0.0 % 07/19/25 16:56 Baso % (Auto) 0.2 % 07/19/25 16:56 Neut # (Auto) 8.08 K/uL (1.40-6.50) H 07/19/25 16:56 Lymph # (Auto) 0.49 K/uL (1.20-3.40) L 07/19/25 16:56 [place] # (Auto) 0.88 K/uL (0.11-0.59) H 07/19/25 16:56 Eos # (Auto) 0.00 K/uL (0.00-0.50) 07/19/25 16:56 Baso # (Auto) 0.02 K/uL (0.00-0.20) 07/19/25 16:56 Immature Gran # (Auto) 0.04 K/uL (0.01-0.20) 07/19/25 16:56 Sodium 133 mmol/L (136-145) L 07/19/25 16:56 Potassium 4.4 mmol/L (3.5-5.1) 07/19/25 16:56 Chloride 101 mmol/L (98-107) 07/19/25 16:56 Carbon Dioxide 19 mmol/L (21-32) L 07/19/25 16:56 Anion Gap 13 (3-11) H 07/19/25 16:56 BUN 22 mg/dl (6-23) 07/19/25 16:56 Creatinine 1.09 mg/dl (0.6-1.2) 07/19/25 16:56 Est Cr Clr Drug Dosing Not Reportable 07/19/25 16:56 eGFR 51.36 07/19/25 16:56 BUN/Creatinine Ratio 20.2 (10-20) H 07/19/25 16:56 Glucose 134 mg/dl (70-99(Fasting)) H 07/19/25 16:56 Lactate 1.8 mmol/L (0.4-2.0) 07/19/25 19:14 Calcium 9.7 mg/dl (8.6-10.3) 07/19/25 16:56 Magnesium 2.0 mg/dl (1.7-2.4) 07/19/25 16:56 Total Bilirubin 2.1 mg/dl (0.2-1.0) H 07/19/25 16:56 Direct Bilirubin 0.7 mg/dl (0-0.2) H 07/19/25 16:56 AST 30 U/L (13-39) 07/19/25 16:56 ALT 11 U/L (7-52) 07/19/25 16:56 Alkaline Phosphatase 66 U/L (34-104) 07/19/25 16:56 Troponin I High Sens 55.9 pg/ml (0-14) H* D 07/19/25 19:14 Total Protein 7.9 gm/dl (6.0-8.3) 07/19/25 16:56 Albumin 4.6 gm/dl (3.4-5.0) 07/19/25 16:56 Procalcitonin 0.07 ng/ml (0-0.5) 07/19/25 16:56 Urine Color Yellow 07/19/25 Unknown Urine Appearance Clear (Clear) 07/19/25 Unknown Urine pH 6.5 (4.5-7.5) 07/19/25 Unknown Ur Specific [place] 1.010 (1.000-1.030) 07/19/25 Unknown Urine Protein 2+ (Negative) H 07/19/25 Unknown Urine Glucose (UA) Negative (Negative) 07/19/25 Unknown Urine Ketones Negative (Negative) 07/19/25 Unknown Urine Blood Negative (Negative) 07/19/25 Unknown Urine Nitrite Negative (Negative) 07/19/25 Unknown Urine Bilirubin Negative (Negative) 07/19/25 Unknown Urine Urobilinogen Negative (Negative) 07/19/25 Unknown Ur Leukocyte Esterase Negative (Negative) 07/19/25 Unknown Urine WBC (Auto) 0-5 /hpf (0-5) 07/19/25 Unknown Urine RBC (Auto) 0-2 /hpf (0-2) 07/19/25 Unknown U Hyaline Cast (Auto) 6-10 /lpf (0-2) H 07/19/25 Unknown U Epithel Cells (Auto) 0-2 /hpf (0-2) 07/19/25 Unknown Urine Bacteria (Auto) None Seen (None Seen) 07/19/25 Unknown Hyaline Casts Present /lpf (None Presnt) A 07/19/25 Unknown Urine Comment 07/19/25 Unknown Adenovirus (PCR) Not Detected (NotDetected) 07/19/25 16:30 B. pertussis DNA (PCR) Not Detected (NotDetected) 07/19/25 16:30 B.parapertussis DNA PCR Not Detected (NotDetected) 07/19/25 16:30 C. pneumoniae DNA (PCR) Not Detected (NotDetected) 07/19/25 16:30 Coronavirus OC43 (PCR) Not Detected (NotDetected) 07/19/25 16:30 Coronavirus HKU1 (PCR) Not Detected (NotDetected) 07/19/25 16:30 Coronavirus 229E (PCR) Not Detected (NotDetected) 07/19/25 16:30 SARS-CoV-2 (PCR) NEGATIVE (Negative) 07/19/25 16:30 SARS-CoV-2 (PCR) Not Detected (NotDetected) 07/19/25 16:30 Coronavirus NL63 (PCR) Not Detected (NotDetected) 07/19/25 16:30 Human Metapneumovir PCR Not Detected (NotDetected) 07/19/25 16:30 Influenza Type A (PCR) Negative (Neg) 07/19/25 16:30 Influenza Type A (PCR) Not Detected (NotDetected) 07/19/25 16:30 Influenza Type B (PCR) Negative (Neg) 07/19/25 16:30 Influenza Type B (PCR) Not Detected (NotDetected) 07/19/25 16:30 M. pneumoniae (PCR) Not Detected (NotDetected) 07/19/25 16:30 Parainfluenza 1 (PCR) Not Detected (NotDetected) 07/19/25 16:30 Parainfluenza 2 (PCR) Not Detected (NotDetected) 07/19/25 16:30 Parainfluenza 3 (PCR) Not Detected (NotDetected) 07/19/25 16:30 Parainfluenza 4 (PCR) Not Detected (NotDetected) 07/19/25 16:30 RSV (RT-PCR) Negative (Neg) 07/19/25 16:30 RSV (PCR) Not Detected (NotDetected) 07/19/25 16:30 Entero/Rhino (PCR) Not Detected (NotDetected) 07/19/25 16:30 Impressions Chest X-Ray 07/19/25 16:51 EXAM: X-ray chest one-view portable CLINICAL HISTORY: Sepsis PRIORS: CT chest today TECHNIQUE: Frontal view chest FINDINGS: The chest is well-expanded. Severe enlargement of the cardiac silhouette with postsurgical change including median sternotomy wires, prostatic cardiac valve and pacing device. Low-dose Elevation of the right Silvestre diaphragm noted. Osseous demineralization seen. Trachea midline. Osseous structures demonstrate no acute abnormality. No radiopaque foreign body. IMPRESSION: Extreme enlargement of the cardiac silhouette. ACT 112: Positive. There are findings on this examination that require communication between the performing entity and the patient following Patient Test Result Information Act ([place] ACT 112) guidelines. Electronically signed by Bernarda Linares 07-19-2025 6:52 PM Abdomen/Pelvis CT 07/19/25 17:37 CT of the abdomen and pelvis with contrast Technique: Postcontrast axial images of the abdomen and pelvis. Coronal and sagittal reformatted images made well for review. No comparison Findings: Hepatomegaly Splenomegaly. Mild intra-abdominal ascites. Distention of the IVC consistent with pulmonary vas congestion or right heart failure. Gallbladder is within normal limits. Cholelithiasis.Subcentimeter hypodensity left kidney too small for further density characterization but likely representing a cyst thickening of the left adrenal gland. Gastric varices present. Findings suggestive of portal hypertension. Moderate amount of stool within the colon. No free air or intestinal obstruction. Vascular calcifications. Remaining solid abdominal organs are unremarkable in appearance. Bone windows demonstrate no focal abnormality. Multilevel degenerative changes of the lower thoracic and lumbar spine. Impression: Unremarkable exam CT abdomen pelvis negative for acute intra-abdominal pathology Mild intra-abdominal ascites Findings consistent with mild portal hypertension with gastric varices. Electronically signed by Alli Kuo 07-19-2025 8:[address] 07/19/25 17:38 CT of the chest with contrast Technique: Postcontrast axial images of the chest. Coronal and sagittal reformatted images made available for review No comparison Findings: Right chest wall dual-lead intracardiac device Marked cardiomegaly. Postoperative changes median sternotomy. Aortic valve calcification. 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 Mild interlobular septal thickening with diffuse ground glass opacities scattered throughout the lungs bilaterally. No effusions. No lobar consolidations. There are extensive right chest wall venous collaterals sugg consistent with occlusion of the right subclavian vein. The internal jugular vein is patent. Multilevel degenerative changes of the thoracic spine without fracture or dislocation. Impression Findings consistent with mild pulmonary edema. Electronically signed by Alli Kuo 07-19-2025 8:19 PM ECG Additional Comments: ECG. AV dual paced rhythm rate of 75. Code Status & VTE Plan VTE Prophylaxis Plan VTE Prophylaxis will be ordered: Yes
[2025-07-20 06:25] LABS: Anion Gap 9.0 (3-11); Blood Urea Nitrogen 24.0 mg/dl (6-23); Calcium 8.9 mg/dl (8.6-10.3); Carbon Dioxide 22.0 mmol/L (21-32); Chloride 104.0 mmol/L (98-107); Creatinine Clr Calc Pharmacy 31.4 ml/min; Glucose 103.0 mg/dl (70-99(Fasting)); Magnesium 1.9 mg/dl (1.7-2.4); Potassium 3.9 mmol/L (3.5-5.1); Sodium 135.0 mmol/L (136-145)
[2025-07-20 06:53] LABS: Hematocrit (blood only) 33.7 % (37.0-47.0); Hemoglobin 11.2 g/dL (12.0-16.0); Immature Granulocytes # (auto) 0.06 K/uL (0.01-0.20); Immature Granulocytes % (auto) 0.6 %; Mean Corpuscular Hemoglobin 34.3 pg (25.0-34.0); Mean Corpuscular Volume 103.1 fL (80.0-100.0); Platelet Count 102 K/uL (130-400); RDW Standard Deviation 53.6 fL (36.4-46.3); Red Blood Count 3.27 M/uL (4.20-5.40); White Blood Count 10.87 K/ul (4.8-10.8)
[2025-07-20] MEDS ORDERED: LOSARTAN POTASSIUM 25 MG TAB PO SCH (09:00)
--- NOTE | 2025-07-20 09:31 | Hospitalist Progress Note ---
Date of Service July 20, 2025 Assessment & Plan (1) Fever: Plan: 79-year-old woman with PMH of congenital stenosis of aortic valve, peripheral vascular disease, rheumatoid arthritis, chronic kidney disease, hypertension, osteoarthritis, history of a flutter, s/p cardiac pacemaker, history of mechanical heart valve, dementia who is currently living at dementia unit in [facility] was brought in because of fevers and diarrhea. As per senior care patient was having fevers on day of presentation and also incontinent of the stool and nauseous but no vomiting which prompted the senior care to send the patient to the ER. At baseline, she is oriented to person and place, Ambulates without support. Fevers Diarrhea Respiratory BioFire negative UA negative CT chest and CT abdomen pelvis no acute findings Procalcitonin negative Received empiric cefepime in the ER Will follow cultures Get Stool PCR/C diff when patient has BM Infectious workup negative so far. Will continue to monitor off antibiotics Dementia Currently residing at dementia unit in [facility] Delirium precautions History of CHF IVF stopped Continue home Lasix with potassium supplements Hypertension Continue to hold losartan due to borderline BP On Lasix Monitor History of mechanical valve replacement (Now bioprosthetic based on TTE below) Used to be on Coumadin Admitting Provider checked with senior care that currently she is not on Coumadin Son not sure exactly but thinks had another surgery and valve replaced (likely bioprosthetic, as evidenced in TTE today) and thinks since then not on Coumadin Mild elevation of troponin Initial troponin 44-55 TTE noted mild conc LVH, borderline global hypokinesis of left ventricle, apical wall motion abnormality may reflect pacemaker activation, EF 45-50%, mod dil LA, mild dil RA, bioprosthetic AV, normal gradient for AV, no AR, trace MR, mild TR No prior TTE to compare Depression On fluoxetine DVT prophylaxis - Heparin subcu CODE STATUS DNR/DNI and comfort measures only but okay for antibiotics as per POLST form. I spent a total of 50 minutes coordinating, documenting and providing care for this patient excluding time spent in performance of separately billed services Admission and Anticipated Discharge Date Admission Date: July 19, 2025 Subjective Patient seen and examined She is alert and oriented to person only Has cognitive impairment which limits ROS Cooperative Physical Exam Constitutional: + well hydrated; no acute distress Eyes: PERRL, conjunctivae normal, anicteric sclerae ENMT: external ear and nose normal, oropharynx normal Respiratory: normal respiratory effort, lungs clear to auscultation Cardiovascular: Rate/Rhythm: regular rate and regular rhythm Gastrointestinal (Abdomen): normal bowel sounds, soft, nontender, no hepatosplenomegaly Musculoskeletal: No pedal edema Neurologic: PERRL, EOMI, accommodation nl, no face palsy, no dysarthria Psychiatric: Alert and oriented to person only Confused Results & Data Results & Data Vital Signs (Past 12 Hours) Vital Signs Temp Pulse Pulse Resp BP BP Pulse Ox 07/20/25 07:42 36.6 C 76 18 95/63 L 92 07/20/25 00:48 75 17 119/72 92 07/20/25 00:31 75 07/20/25 00:30 07/20/25 00:30 37.2 C 73 16 119/72 92 07/19/25 23:12 75 20 93 07/19/25 23:00 75 21 97 07/19/25 23:00 100/07/19/25 23:00 100/63 07/19/25 23:00 100/63 07/19/25 23:00 100/63 07/19/25 23:00 100/63 07/19/25 23:00 73 16 100/63 94 07/19/25 22:51 75 22 99 07/19/25 22:42 75 19 96 07/19/25 22:32 113/72 07/19/25 22:32 113/72 07/19/25 22:32 113/72 07/19/25 22:32 113/72 07/19/25 22:32 113/72 07/19/25 22:30 75 21 96 07/19/25 22:21 75 15 96 07/19/25 22:12 77 21 96 07/19/25 22:00 75 21 95 07/19/25 22:00 109/66 07/19/25 22:00 109/07/19/25 22:00 109/66 07/19/25 22:00 109/07/19/25 22:00 109/07/19/25 21:51 75 22 92 07/19/25 21:42 75 22 95 07/19/25 21:35 88 L O2 Del Method O2 Flow Rate 07/20/25 07:42 Nasal Cannula 1 07/20/25 00:48 Oxymask 2 07/20/25 00:31 07/20/25 00:30 Nasal Cannula 2 07/20/25 00:30 Nasal Cannula 2 07/19/25 23:12 07/19/25 23:00 07/19/25 23:00 07/19/25 23:00 07/19/25 23:00 07/19/25 23:00 07/19/25 23:00 07/19/25 23:00 Nasal Cannula 2 07/19/25 22:51 07/19/25 22:42 07/19/25 22:32 07/19/25 22:32 07/19/25 22:32 07/19/25 22:32 07/19/25 22:32 07/19/25 22:30 07/19/25 22:21 07/19/25 22:12 07/19/25 22:00 07/19/25 22:00 07/19/25 22:00 07/19/25 22:00 07/19/25 22:00 07/19/25 22:00 07/19/25 21:51 07/19/25 21:42 07/19/25 21:35 Room Air 0 Laboratory Results Abnormal lab results 07/19/25 07/19/25 07/19/25 Range/Units 16:56 19:14 Unknown WBC (4.8-10.8) K/ul RBC 3.74 L (4.20-5.40) M/uL Hgb (12.0-16.0) g/dL Hct (37.0-47.0) % MCV (80.0-100.0) fL MCH (25.0-34.0) pg RDW Std Deviation 51.6 H (36.4-46.3) fL Plt Count (130-400) K/uL Neut # (Auto) 8.08 H (1.40-6.50) K/uL Lymph # (Auto) 0.49 L (1.20-3.40) K/uL [place] # (Auto) 0.88 H (0.11-0.59) K/uL Sodium 133 L (136-145) mmol/L Carbon Dioxide 19 L (21-32) mmol/L Anion Gap 13 H (3-11) BUN (6-23) mg/dl BUN/Creatinine Ratio 20.2 H (10-20) Glucose 134 H (70-99(Fasting)) mg/dl Total Bilirubin 2.1 H (0.2-1.0) mg/dl Direct Bilirubin 0.7 H (0-0.2) mg/dl Troponin I High Sens 44.9 H 55.9 H* D (0-14) pg/ml Urine Protein 2+ H (Negative) U Hyaline Cast (Auto) 6-10 H (0-2) /lpf Hyaline Casts Present A (None Presnt) /lpf 07/20/25 Range/Units 05:39 WBC 10.87 H (4.8-10.8) K/ul RBC 3.27 L (4.20-5.40) M/uL Hgb 11.2 L (12.0-16.0) g/dL Hct 33.7 L (37.0-47.0) % MCV 103.1 H (80.0-100.0) fL MCH 34.3 H (25.0-34.0) pg RDW Std Deviation 53.6 H (36.4-46.3) fL Plt Count 102 L (130-400) K/uL Neut # (Auto) 9.47 H (1.40-6.50) K/uL Lymph # (Auto) 0.49 L (1.20-3.40) K/uL [place] # (Auto) 0.84 H (0.11-0.59) K/uL Sodium 135 L (136-145) mmol/L Carbon Dioxide (21-32) mmol/L Anion Gap (3-11) BUN 24 H (6-23) mg/dl BUN/Creatinine Ratio 23.3 H (10-20) Glucose 103 H (70-99(Fasting)) mg/dl Total Bilirubin (0.2-1.0) mg/dl Direct Bilirubin (0-0.2) mg/dl Troponin I High Sens 55.7 H* (0-14) pg/ml Urine Protein (Negative) U Hyaline Cast (Auto) (0-2) /lpf Hyaline Casts (None Presnt) /lpf
--- NOTE | 2025-07-20 10:34 | XCELERA ---
[id number] \\[email or web address]\[id number]
[2025-07-20] MEDS: CALCIUM 600MG + VIT D 400 IU TAB PO SCH (11:09)
[2025-07-20] MEDS: HEPARIN SOD 5,000 UNIT/0.5 ML VIAL SQ SCH (11:10)
[2025-07-20] MEDS: MULTIVITAMIN TAB PO SCH (11:10)
[2025-07-20] MEDS: POTASSIUM CHLORIDE CRTAB 20 MEQ TABCR PO SCH (11:11)
[2025-07-20] MEDS: FUROSEMIDE 40 MG TAB PO SCH (11:11)
--- NOTE | 2025-07-20 19:32 | Electrocardiogram Report ---
Test Reason : Blood Pressure : */* mmHG Vent. Rate : 75 BPM Atrial Rate : 75 BPM P-R Int : 194 ms QRS Dur : 148 ms QT Int : 458 ms P-R-T Axes : -27 227 73 degrees QTcB Int : 511 ms Poor data quality, interpretation may be adversely affected AV dual-paced rhythm Abnormal ECG No previous ECGs available Confirmed by Seamus Painter ([id number]) on 07/20/2025 7:32:29 PM Referred By: Confirmed By: Seamus Painter
[2025-07-20] MEDS: MELATONIN 3 MG TAB PO SCH (20:03)
--- NOTE | 2025-07-21 10:16 | Hospitalist Progress Note ---
Date of Service July 21, 2025 Assessment & Plan (1) Fever: Plan: 79-year-old woman with PMH of congenital stenosis of aortic valve, peripheral vascular disease, rheumatoid arthritis, chronic kidney disease, hypertension, osteoarthritis, history of a flutter, s/p cardiac pacemaker, history of mechanical heart valve, dementia who is currently living at dementia unit in [facility] was brought in because of fevers and diarrhea. As per alf patient was having fevers on day of presentation and also incontinent of the stool and nauseous but no vomiting which prompted the alf to send the patient to the ER. At baseline, she is oriented to person and place, Ambulates without support. Fevers Diarrhea Respiratory BioFire negative UA negative CT chest and CT abdomen pelvis no acute findings Procalcitonin negative Received empiric cefepime in the ER Infectious workup negative so far. Will continue to monitor off antibiotics Dementia Currently residing at dementia unit in [facility] Delirium precautions History of CHF Continue home Lasix with potassium supplements Hypertension Continue to hold losartan due to borderline BP. If BP trend continues, will stop losartan on discharge On Lasix Monitor History of mechanical valve replacement (Now bioprosthetic based on TTE below) Used to be on Coumadin Admitting Provider checked with alf that currently she is not on Coumadin Son not sure exactly but thinks had another surgery and valve replaced (likely bioprosthetic, as evidenced in TTE today) and thinks since then not on Coumadin Mild elevation of troponin Initial troponin 44-55 TTE noted mild conc LVH, borderline global hypokinesis of left ventricle, apical wall motion abnormality may reflect pacemaker activation, EF 45-50%, mod dil LA, mild dil RA, bioprosthetic AV, normal gradient for AV, no AR, trace MR, mild TR No prior TTE to compare Depression On fluoxetine DVT prophylaxis - Heparin subcu CODE STATUS DNR/DNI and comfort measures only but okay for antibiotics as per POLST form. Called son and updated him I spent a total of 35 minutes coordinating, documenting and providing care for this patient excluding time spent in performance of separately billed services Admission and Anticipated Discharge Date Admission Date: July 19, 2025 Subjective Patient seen and examined No complaints Sitter reports she had a normal BM this AM Physical Exam Constitutional: + well hydrated; no acute distress Eyes: PERRL, conjunctivae normal, anicteric sclerae ENMT: external ear and nose normal, oropharynx normal Respiratory: normal respiratory effort, lungs clear to auscultation Cardiovascular: Rate/Rhythm: regular rate and regular rhythm Gastrointestinal (Abdomen): normal bowel sounds, soft, nontender, no hepatosplenomegaly Musculoskeletal: No pedal edema Neurologic: PERRL, EOMI, accommodation nl, no face palsy, no dysarthria Psychiatric: Alert and oriented to person only. Results & Data Results & Data Vital Signs (Past 12 Hours) Vital Signs Temp Pulse Pulse Resp BP BP Pulse Ox 07/21/25 08:44 37.0 C 77 17 127/83 92 07/21/25 07:47 75 07/21/25 00:11 76 18 113/60 92 O2 Del Method 07/21/25 08:44 Room Air 07/21/25 07:47 07/21/25 00:11 Room Air Laboratory Results Abnormal lab results 07/21/25 Range/Units 10:13 RBC 3.70 L (4.20-5.40) M/uL Hct 36.5 L (37.0-47.0) % RDW Std Deviation 49.9 H (36.4-46.3) fL Plt Count 110 L (130-400) K/uL Sodium 131 L (136-145) mmol/L Carbon Dioxide 20 L (21-32) mmol/L BUN 29 H (6-23) mg/dl BUN/Creatinine Ratio 28.2 H (10-20) Glucose 104 H (70-99(Fasting)) mg/dl
[2025-07-21 10:54] LABS: Anion Gap 10.0 (3-11); Blood Urea Nitrogen 29.0 mg/dl (6-23); Calcium 9.4 mg/dl (8.6-10.3); Carbon Dioxide 20.0 mmol/L (21-32); Chloride 101.0 mmol/L (98-107); Creatinine Clr Calc Pharmacy 31.0 ml/min; Glucose 104.0 mg/dl (70-99(Fasting)); Potassium 4.3 mmol/L (3.5-5.1); Sodium 131.0 mmol/L (136-145)
[2025-07-21 11:31] LABS: Hematocrit (blood only) 36.5 % (37.0-47.0); Hemoglobin 12.5 g/dL (12.0-16.0); Mean Corpuscular Hemoglobin 33.8 pg (25.0-34.0); Mean Corpuscular Volume 98.6 fL (80.0-100.0); Platelet Count 110 K/uL (130-400); RDW Standard Deviation 49.9 fL (36.4-46.3); Red Blood Count 3.70 M/uL (4.20-5.40); White Blood Count 8.65 K/ul (4.8-10.8)
[2025-07-21] MEDS ORDERED: PHA DELIRIUM CONSULT PRN (14:20)
[2025-07-22 08:15] LABS: Hematocrit (blood only) 37.4 % (37.0-47.0); Hemoglobin 12.6 g/dL (12.0-16.0); Mean Corpuscular Hemoglobin 33.5 pg (25.0-34.0); Mean Corpuscular Volume 99.5 fL (80.0-100.0); Platelet Count 123 K/uL (130-400); RDW Standard Deviation 50.5 fL (36.4-46.3); Red Blood Count 3.76 M/uL (4.20-5.40); White Blood Count 5.32 K/ul (4.8-10.8)
[2025-07-22] MEDS: ACETAMINOPHEN 325 MG TAB PO PRN (08:16)
[2025-07-22 08:32] LABS: Anion Gap 10.0 (3-11); Blood Urea Nitrogen 29.0 mg/dl (6-23); Calcium 9.2 mg/dl (8.6-10.3); Carbon Dioxide 21.0 mmol/L (21-32); Chloride 101.0 mmol/L (98-107); Creatinine Clr Calc Pharmacy 33.2 ml/min; Glucose 96.0 mg/dl (70-99(Fasting)); Potassium 3.7 mmol/L (3.5-5.1); Sodium 132.0 mmol/L (136-145)
--- NOTE | 2025-07-22 10:08 | Hospitalist Progress Note ---
Date of Service July 22, 2025 Assessment & Plan (1) Fever: Plan: 79-year-old woman with PMH of congenital stenosis of aortic valve, peripheral vascular disease, rheumatoid arthritis, chronic kidney disease, hypertension, osteoarthritis, history of a flutter, s/p cardiac pacemaker, history of mechanical heart valve, dementia who is currently living at dementia unit in [facility] was brought in because of fevers and diarrhea. As per fci patient was having fevers on day of presentation and also incontinent of the stool and nauseous but no vomiting which prompted the [facility]ci to send the patient to the ER. At baseline, she is oriented to person and place, Ambulates without support. Fevers Diarrhea Respiratory BioFire negative UA negative CT chest and CT abdomen pelvis no acute findings Procalcitonin negative Received empiric cefepime in the ER Infectious workup negative so far. Dementia Currently residing at dementia unit in [facility] Delirium precautions History of CHF Continue home Lasix with potassium supplements Hypertension Continue to hold losartan due to borderline BP. If BP trend continues, will stop losartan on discharge On Lasix Monitor History of mechanical valve replacement (Now bioprosthetic based on TTE below) Used to be on Coumadin Admitting Provider checked with [facility] that currently she is not on Coumadin Son not sure exactly but thinks had another surgery and valve replaced (likely bioprosthetic, as evidenced in TTE today) and thinks since then not on Coumadin Mild elevation of troponin Initial troponin 44-55 TTE noted mild conc LVH, borderline global hypokinesis of left ventricle, apical wall motion abnormality may reflect pacemaker activation, EF 45-50%, mod dil LA, mild dil RA, bioprosthetic AV, normal gradient for AV, no AR, trace MR, mild TR No prior TTE to compare Depression On fluoxetine DVT prophylaxis - Heparin subcu CODE STATUS DNR/DNI and comfort measures only but okay for antibiotics as per POLST form. Patient is medically stable for discharge Notified by CM that patient did not do very well with PT. CM will send eval to her [facility] for them to review and determine if they are able to take her to do PT/OT there. Will f/u full PT eval for today I spent a total of 35 minutes coordinating, documenting and providing care for this patient excluding time spent in performance of separately billed services Admission and Anticipated Discharge Date Admission Date: July 19, 2025 Subjective Patient seen and examined No new complaints Physical Exam Constitutional: + well hydrated; no acute distress Eyes: PERRL, conjunctivae normal, anicteric sclerae ENMT: external ear and nose normal, oropharynx normal Respiratory: normal respiratory effort, lungs clear to auscultation Cardiovascular: Rate/Rhythm: regular rate and regular rhythm Gastrointestinal (Abdomen): normal bowel sounds, soft, nontender, no hepatosplenomegaly Neurologic: PERRL, EOMI, accommodation nl, no face palsy, no dysarthria Alert and oriented to person only Results & Data Results & Data Vital Signs (Past 12 Hours) Vital Signs Temp Pulse Pulse Pulse Resp BP Pulse Ox 07/22/25 07:59 36.7 C 78 18 136/87 94 07/22/25 07:54 75 07/22/25 03:43 36.5 C 75 18 120/75 94 07/21/25 22:23 36.7 C 85 18 112/72 93 O2 Del Method 07/22/25 07:59 Room Air 07/22/25 07:54 07/22/25 03:43 Room Air 07/21/25 22:23 Room Air Laboratory Results Abnormal lab results 07/22/25 Range/Units 07:47 RBC 3.76 L (4.20-5.40) M/uL RDW Std Deviation 50.5 H (36.4-46.3) fL Plt Count 123 L (130-400) K/uL Sodium 132 L (136-145) mmol/L BUN 29 H (6-23) mg/dl BUN/Creatinine Ratio 29.0 H (10-20)
[2025-07-22] MEDS ORDERED: PHA DELIRIUM CONSULT PRN (15:56)
[2025-07-22] MEDS: LORazepam 0.5 MG TAB PO STA (20:18)
[2025-07-23 02:21] LABS: A calco-baum cmplx NotReported Not Detected (NotDetected); Bact fragilis Not Reported Not Detected (NotDetected); Blood Culture Id Panel PCR Panel Negative (NotDetected); C auris Not Reported Not Detected (NotDetected); Calbicans Not Reported Not Detected (NotDetected); Candida glabrata Not Reported Not Detected (NotDetected); Candida krusei Not Reported Not Detected (NotDetected); Cneoformans/gatti Not Reported Not Detected (NotDetected); Cparapsilosis Not Reported Not Detected (NotDetected); Ctropicalis Not Reported Not Detected (NotDetected); E cloacae compx Not Reported Not Detected (NotDetected); Efaecalis Not Reported Not Detected (NotDetected); Efaecium Not Reported Not Detected (NotDetected); Enterobacterales Not Reported Not Detected (NotDetected); Escherichia coli Not Reported Not Detected (NotDetected); H influenzae Not Reported Not Detected (NotDetected); K aerogenes Not Reported Not Detected (NotDetected); Koxytoca Not Reported Not Detected (NotDetected); Kpneumoniae grp Not Reported Not Detected (NotDetected); Lmonocyt Not Reported Not Detected (NotDetected); N meningitidis Not Reported Not Detected (NotDetected); P aeruginosa Not Reported Not Detected (NotDetected); Proteus spp Not Reported Not Detected (NotDetected); Salmonella spp Not Reported Not Detected (NotDetected); Staph lugdunensis Not Reported Not Detected (NotDetected); Staph spp. Not Reported Not Detected (NotDetected); Staphaureus Not Reported Not Detected (NotDetected); Staphepi Not Reported Not Detected (NotDetected); Stenmaltophilia Not Reported Not Detected (NotDetected); Strep agal(GrpB) Not Reported Not Detected (NotDetected); Strep pneum Not Reported Not Detected (NotDetected); Strep pyog (GrpA) Not Reported Not Detected (NotDetected); Strep spp Not Reported Not Detected (NotDetected)
[2025-07-23 08:43] LABS: Hematocrit (blood only) 37.2 % (37.0-47.0); Hemoglobin 12.7 g/dL (12.0-16.0); Mean Corpuscular Hemoglobin 33.6 pg (25.0-34.0); Mean Corpuscular Volume 98.4 fL (80.0-100.0); Platelet Count 135 K/uL (130-400); RDW Standard Deviation 50.0 fL (36.4-46.3); Red Blood Count 3.78 M/uL (4.20-5.40); White Blood Count 4.33 K/ul (4.8-10.8)
[2025-07-23 09:01] LABS: Anion Gap 8.0 (3-11); Blood Urea Nitrogen 24.0 mg/dl (6-23); Calcium 9.5 mg/dl (8.6-10.3); Carbon Dioxide 25.0 mmol/L (21-32); Chloride 101.0 mmol/L (98-107); Creatinine Clr Calc Pharmacy 37.7 ml/min; Glucose 97.0 mg/dl (70-99(Fasting)); Potassium 3.5 mmol/L (3.5-5.1); Sodium 134.0 mmol/L (136-145)
--- NOTE | 2025-07-23 13:27 | Hospitalist Progress Note ---
Date of Service July 23, 2025 Assessment & Plan (1) Fever: Plan: 79-year-old woman with PMH of congenital stenosis of aortic valve, peripheral vascular disease, rheumatoid arthritis, chronic kidney disease, hypertension, osteoarthritis, history of a flutter, s/p cardiac pacemaker, history of mechanical heart valve, dementia who is currently living at dementia unit in [facility] was brought in because of fevers and diarrhea. As per [facility] patient was having fevers on day of presentation and also incontinent of the stool and nauseous but no vomiting which prompted the [facility] to send the patient to the ER. At baseline, she is oriented to person and place, Ambulates without support. Fevers Diarrhea Respiratory BioFire negative UA negative CT chest and CT abdomen pelvis no acute findings Procalcitonin negative Received empiric cefepime in the ER Blood culture in 1 of 4 bottles from 07/19/25 just turned positive to GPC in chains this AM. Blood culture PCR negative Fever was only recorded on 07/19/25 and last diarrhea was on 07/20/[address] Trent. He recommended that in view of her heart disease, prosthetic AV; to wait for blood culture speciation and sensitivities, hold off antibiotics for now if stable and to send repeat blood cultures. Will follow up repeat BCx and ID recs Dementia Currently residing at dementia unit in [facility] Delirium precautions History of CHF Continue home Lasix with potassium supplements Hypertension Continue to hold losartan due to borderline BP. If BP trend continues, will stop losartan on discharge On Lasix Monitor History of mechanical valve replacement (Now bioprosthetic based on TTE below) Used to be on Coumadin Admitting Provider checked with [facility] that currently she is not on Coumadin Son not sure exactly but thinks had another surgery and valve replaced (likely bioprosthetic, as evidenced in TTE) and thinks since then not on Coumadin Mild elevation of troponin Initial troponin 44-55 TTE noted mild conc LVH, borderline global hypokinesis of left ventricle, apical wall motion abnormality may reflect pacemaker activation, EF 45-50%, mod dil LA, mild dil RA, bioprosthetic AV, normal gradient for AV, no AR, trace MR, mild TR No prior TTE to compare Depression On fluoxetine DVT prophylaxis - Heparin subcu CODE STATUS DNR/DNI and comfort measures only but okay for antibiotics as per POLST form. Called son and updated him I spent a total of 50 minutes coordinating, documenting and providing care for this patient excluding time spent in performance of separately billed services Admission and Anticipated Discharge Date Admission Date: July 19, 2025 Subjective Patient seen and examined Blood cultures from admission on 07/19/25 turned positive in 1 of 4 bottles this AM growing GPC in chains Physical Exam Constitutional: + well hydrated; no acute distress Eyes: PERRL, conjunctivae normal, anicteric sclerae ENMT: external ear and nose normal, oropharynx normal Respiratory: normal respiratory effort, lungs clear to auscultation Cardiovascular: Rate/Rhythm: regular rate and regular rhythm Gastrointestinal (Abdomen): normal bowel sounds, soft, nontender, no hepatosplenomegaly Musculoskeletal: No pedal edema Neurologic: PERRL, EOMI, accommodation nl, no face palsy, no dysarthria Psychiatric: Alert and oriented to person only Results & Data Results & Data Vital Signs (Past 12 Hours) Vital Signs Temp Pulse Resp BP Pulse Ox O2 Del Method 07/23/25 07:40 36.7 C 75 16 129/80 96 Room Air Laboratory Results Abnormal lab results 07/23/25 Range/Units 07:57 WBC 4.33 L (4.8-10.8) K/ul RBC 3.78 L (4.20-5.40) M/uL RDW Std Deviation 50.0 H (36.4-46.3) fL Sodium 134 L (136-145) mmol/L BUN 24 H (6-23) mg/dl BUN/Creatinine Ratio 28.9 H (10-20)
--- NOTE | 2025-07-23 14:32 | Electrocardiogram Report ---
Test Reason : Blood Pressure : */* mmHG Vent. Rate : 76 BPM Atrial Rate : 76 BPM P-R Int : 218 ms QRS Dur : 168 ms QT Int : 488 ms P-R-T Axes : * 232 49 degrees QTcB Int : 549 ms AV dual-paced rhythm with prolonged AV conduction Biventricular pacemaker detected Abnormal ECG When compared with ECG of 19-Jul-2025 17:09, No significant change was found Confirmed by Toro Zambrano ([id number]) on 07/23/2025 2:32:05 PM Referred By: [facility] Confirmed By: Toro Zambrano
[2025-07-23] MEDS: LORazepam 0.5 MG TAB PO STA (20:06)
[2025-07-24 07:55] LABS: Hematocrit (blood only) 35.5 % (37.0-47.0); Hemoglobin 12.2 g/dL (12.0-16.0); Mean Corpuscular Hemoglobin 33.6 pg (25.0-34.0); Mean Corpuscular Volume 97.8 fL (80.0-100.0); Platelet Count 140 K/uL (130-400); RDW Standard Deviation 50.7 fL (36.4-46.3); Red Blood Count 3.63 M/uL (4.20-5.40); White Blood Count 4.00 K/ul (4.8-10.8)
[2025-07-24 08:18] LABS: Anion Gap 7.0 (3-11); Blood Urea Nitrogen 24.0 mg/dl (6-23); Calcium 9.2 mg/dl (8.6-10.3); Carbon Dioxide 26.0 mmol/L (21-32); Chloride 101.0 mmol/L (98-107); Creatinine Clr Calc Pharmacy 31.9 ml/min; Glucose 99.0 mg/dl (70-99(Fasting)); Potassium 3.7 mmol/L (3.5-5.1); Sodium 134.0 mmol/L (136-145)
--- NOTE | 2025-07-24 12:06 | Infectious Disease Consult ---
Date of Service July 24, 2025 Telehealth Information I performed this visit using a real-time telehealth connection between my location and the patients location ([facility]). After connecting through interactive tele-video, patient was identified by name and date of and/or wristband check.Patient (or authorized healthcare compliance representative) was informed that this was a telemedicine visit and it was being conducted confidentially over secure lines. My office door was closed and no one else was present in the room with me.Patient (or authorized healthcare compliance representative) provided consent to proceed with the visit, expressed an understanding of privacy and security of the telemedicine visit, and gave permission to have a hospital compliance representative in the room in order to assist with the visit and to conduct portions of the visit, as needed. I informed the patient (or authorized healthcare compliance representative) that I reviewed their record and presented the opportunity for them to ask any questions regarding the visit today. The patient agreed to participate. Assessment & Plan (1) Positive blood culture: (2) H/O aortic valve replacement: (3) Status post placement of cardiac pacemaker: Plan Based on overall picture, the illness on presentation was suggestive of a viral infection. I would assume that the positive blood culture is likely a contamination. However, given the history of prosthetic aortic valve and pacemaker, a repeat blood culture is warranted before finalizing the plan. I would recommend to continue to monitor off antibiotics today. If the blood culture sent on 07/23 remains negative by tomorrow, I will consider the positive culture as contamination and continue to monitor of antibiotics. History of Present Illness History of Present Illness 79-year-old woman with past medical history of dementia (long-term resident), congenital stenosis of the aortic valve, status post aortic valve replacement, status post pacemaker, rheumatoid arthritis, peripheral vascular disease, atrial flutter, and CKD who was admitted to [facility] after being transferred from her long-term because of fevers and diarrhea. On presentation, she was febrile at 38.5; the rest of the vitals were within normal limits. Initial workup was mainly significant for hyponatremia of 133, no frannie kocytosis, UA with 0-5 WBCs and no bacteria, and negative RVP panel. The patient had only the 1 episode of fever on presentation and 1 day of diarrhea only and has been doing well overall since admission. However, on 07/23, 1 of 4 bottles of blood culture came back with Gram stain positive for Gram-positive cocci in chains (no identification on PCR). Allergies Allergy/AdvReac Type Severity Reaction Status Date / Time BENITO Inhibitors Allergy Unknown ON Verified 07/19/25 20:[facility] flecainide Allergy Unknown ON Verified 07/19/25 20:26 [facility] Home Medications Medication Instructions Recorded Confirmed Type acetaminophen 325 mg tablet 650 mg PO Q4H PRN PAIN/FEVER 07/19/25 07/19/25 History (Tylenol) calcium 600 mg (as 2 tab PO DAILY 07/19/25 07/19/25 History carbonate)-vitamin D3 10 mcg (400 unit) tablet (Calcium 600 + D(3)) fluoxetine 20 mg capsule 20 mg PO DAILY 07/19/25 07/19/25 History furosemide 40 mg tablet 40 mg PO DAILY 07/19/25 07/19/25 History loperamide 2 mg capsule 2 mg PO Q8H PRN AFTER LOOSE STOOLS 07/19/25 07/19/25 History losartan 25 mg tablet 25 mg PO DAILY 07/19/25 07/19/25 History melatonin 5 mg capsule 5 mg PO HS 07/19/25 07/19/25 History multivitamin 1 tab PO DAILY 07/19/25 07/19/25 History oxymetazoline 0.05 % nasal spray 2 spray intranasal QID PRN NOSE 07/19/25 07/19/25 History (Nasal Decongestant BLEEDS (oxymetazoline)) potassium chloride 20 mEq 20 meq PO DAILY 07/19/25 07/19/25 History tablet,extended release(part/cryst) sodium chloride 0.65 % nasal spray 1 spray intranasal 5XD 07/19/25 07/19/25 History aerosol (Saline Nasal) Patient History Medical History Anticoagulated on Coumadin Social History Smoking Status: Unknown if ever smoked Preferred Language: Chilean Communication Ability: Effective Mortgage Loan Officer Originator Required: No Beliefs That Will Affect Care: None Current Living Situation: Personal Care Facility Feels Safe at Home: Yes Assistive Devices: None Review of Systems Negative except for what was mentioned in the H&P. Physical Exam Could not be performed as the visit was conducted via TeleMed. Results & Data Vital Signs (Past 12 Hours) Vital Signs Temp Pulse Resp BP Pulse Ox O2 Del Method 07/24/25 07:29 36.4 C L 75 16 113/74 95 Room Air Laboratory Results Microbiology: 07/19: 1 of 4 bottles of blood culture with Gram stain positive for Gram- positive cocci in chains (no identification on PCR) 07/23: 2 sets of blood culture negative to date Diagnostic Findings Imaging: CT abdomen pelvis on 07/19: Unremarkable exam CT abdomen pelvis negative for acute intra-abdominal pathology Mild intra-abdominal ascites Findings consistent with mild portal hypertension with gastric varices.
--- NOTE | 2025-07-24 13:59 | Hospitalist Progress Note ---
Date of Service July 24, 2025 Assessment & Plan (1) Fever: Plan: 79-year-old woman with PMH of congenital stenosis of aortic valve, peripheral vascular disease, rheumatoid arthritis, chronic kidney disease, hypertension, osteoarthritis, history of a flutter, s/p cardiac pacemaker, history of mechanical heart valve, dementia who is currently living at dementia unit in [facility] was brought in because of fevers and diarrhea. As per longterm patient was having fevers on day of presentation and also incontinent of the stool and nauseous but no vomiting which prompted the longterm to send the patient to the ER. At baseline, she is oriented to person and place, Ambulates without support. Fevers Diarrhea Respiratory BioFire negative UA negative CT chest and CT abdomen pelvis no acute findings Procalcitonin negative Received empiric cefepime in the ER Blood culture in 1 of 4 bottles from 07/19/25 just turned positive to GPC in chains this AM. Blood culture PCR negative Fever was only recorded on 07/19/25 and last diarrhea was on 07/20/25 ID recommends following up repeat BCx from yesterday off antibiotics. If repeat BCx is negative, positive culture is likely contamination Dementia Currently residing at dementia unit in [facility] Delirium precautions History of CHF Continue home Lasix with potassium supplements Hypertension Continue to hold losartan due to borderline BP. If BP trend continues, will stop losartan on discharge On Lasix Monitor History of mechanical valve replacement (Now bioprosthetic based on TTE below) Used to be on Coumadin Admitting Provider checked with longterm that currently she is not on Coumadin Son not sure exactly but thinks had another surgery and valve replaced (likely bioprosthetic, as evidenced in TTE) and thinks since then not on Coumadin Mild elevation of troponin Initial troponin 44-55 TTE noted mild conc LVH, borderline global hypokinesis of left ventricle, apical wall motion abnormality may reflect pacemaker activation, EF 45-50%, mod dil LA, mild dil RA, bioprosthetic AV, normal gradient for AV, no AR, trace MR, mild TR No prior TTE to compare Depression On fluoxetine DVT prophylaxis - Heparin subcu CODE STATUS DNR/DNI and comfort measures only but okay for antibiotics as per POLST form. I spent a total of 35 minutes coordinating, documenting and providing care for this patient excluding time spent in performance of separately billed services Admission and Anticipated Discharge Date Admission Date: July 19, 2025 Subjective Patient seen and examined No complaints today Physical Exam Constitutional: + well hydrated; no acute distress Eyes: PERRL, conjunctivae normal, anicteric sclerae ENMT: external ear and nose normal, oropharynx normal Respiratory: normal respiratory effort, lungs clear to auscultation Cardiovascular: Rate/Rhythm: regular rate and regular rhythm Gastrointestinal (Abdomen): normal bowel sounds, soft, nontender, no hepatosplenomegaly Neurologic: PERRL, EOMI, accommodation nl, no face palsy, no dysarthria Psychiatric: Alert and oriented to person only Results & Data Results & Data Vital Signs (Past 12 Hours) Vital Signs Temp Pulse Resp BP Pulse Ox O2 Del Method 07/24/25 07:29 36.4 C L 75 16 113/74 95 Room Air Laboratory Results Abnormal lab results 07/24/25 Range/Units 07:10 WBC 4.00 L (4.8-10.8) K/ul RBC 3.63 L (4.20-5.40) M/uL Hct 35.5 L (37.0-47.0) % RDW Std Deviation 50.7 H (36.4-46.3) fL Sodium 134 L (136-145) mmol/L BUN 24 H (6-23) mg/dl BUN/Creatinine Ratio 24.5 H (10-20)
[2025-07-25] MEDS: LORazepam 0.5 MG TAB PO STA (00:37)
[2025-07-25 13:33] LABS: Hematocrit (blood only) 38.6 % (37.0-47.0); Hemoglobin 13.2 g/dL (12.0-16.0); Mean Corpuscular Hemoglobin 33.5 pg (25.0-34.0); Mean Corpuscular Volume 98.0 fL (80.0-100.0); Platelet Count 159 K/uL (130-400); RDW Standard Deviation 51.8 fL (36.4-46.3); Red Blood Count 3.94 M/uL (4.20-5.40); White Blood Count 5.36 K/ul (4.8-10.8)
[2025-07-25 13:46] LABS: Anion Gap 9.0 (3-11); Blood Urea Nitrogen 23.0 mg/dl (6-23); Calcium 10.9 mg/dl (8.6-10.3); Carbon Dioxide 27.0 mmol/L (21-32); Chloride 97.0 mmol/L (98-107); Creatinine Clr Calc Pharmacy 28.2 ml/min; Glucose 135.0 mg/dl (70-99(Fasting)); Potassium 4.4 mmol/L (3.5-5.1); Sodium 133.0 mmol/L (136-145)
--- NOTE | 2025-07-25 14:58 | Hospitalist Progress Note ---
Date of Service July 25, 2025 Assessment & Plan (1) Fever: Plan: 79-year-old woman with PMH of congenital stenosis of aortic valve, peripheral vascular disease, rheumatoid arthritis, chronic kidney disease, hypertension, osteoarthritis, history of a flutter, s/p cardiac pacemaker, history of mechanical heart valve, dementia who is currently living at dementia unit in [facility] was brought in because of fevers and diarrhea. As per detention patient was having fevers on day of presentation and also incontinent of the stool and nauseous but no vomiting which prompted the detention to send the patient to the ER. At baseline, she is oriented to person and place, Ambulates without support. Fevers Diarrhea Respiratory BioFire negative UA negative CT chest and CT abdomen pelvis no acute findings Procalcitonin negative Received empiric cefepime in the ER Blood culture in 1 of 4 bottles from 07/19/25 just turned positive to [facility] in [facility] this AM. Blood culture PCR negative Fever was only recorded on 07/19/25 and last diarrhea was on 07/20/25 ID recommends following up repeat BCx from yesterday off antibiotics. If repeat BCx is negative, positive culture is likely contamination 07/25 afebrile diarrhea resolved repeat blood culture: negative x 24h, awaiting final results, if negative, can be discharged back to Memory Care Unit Dementia Currently residing at dementia unit in [facility] Delirium precautions History of CHF Continue home Lasix with potassium supplements Hypertension Continue to hold losartan due to borderline BP. If BP trend continues, will stop losartan on discharge On Lasix Monitor History of mechanical valve replacement (Now bioprosthetic based on TTE below) Used to be on Coumadin Admitting Provider checked with detention that currently she is not on Coumadin Son not sure exactly but thinks had another surgery and valve replaced (likely bioprosthetic, as evidenced in TTE) and thinks since then not on Coumadin Mild elevation of troponin Initial troponin 44-55 TTE noted mild conc LVH, borderline global hypokinesis of left ventricle, apical wall motion abnormality may reflect pacemaker activation, EF 45-50%, mod dil LA, mild dil RA, bioprosthetic AV, normal gradient for AV, no AR, trace MR, mild TR No prior TTE to compare Depression On fluoxetine DVT prophylaxis - Heparin subcu CODE STATUS DNR/DNI and comfort measures only but okay for antibiotics as per POLST form. Admission and Anticipated Discharge Date Admission Date: July 19, 2025 Subjective seen resting in chair, sitting up, coloring pictures comfortable, not in distress, pleasantly confused feels fine overall no chest pain, dyspnea, palpitations, dizziness no abdominal pain, nausea, diarrhea discussed with [facility]- no new acute issues Review of Systems Review of Systems: all noted and negative except for above Physical Exam Physical Exam: General- oriented x 0, not in distress, speaks in sentences with no effort or accessory muscle use Eyes- anicteric Neck- no JVD Lungs- clear breath sounds bilaterally, no rales/wheezes Heart- normal rate, regular rhythm; no murmurs Abdomen- normal bowel sounds, nondistended, soft, nontender Extremities- no pretibial edema, no calf tenderness Neuro- alert, oriented x 0; no gross focal neurologic deficits Skin- warm & dry Results & Data Results & Data Vital Signs (Past 12 Hours) Vital Signs Temp Pulse Resp BP Pulse Ox O2 Del Method 07/25/25 07:05 36.9 C 78 16 110/71 94 Room Air all noted and reviewed including below
[2025-07-26 05:08] VITALS: RESP 16
[2025-07-26 08:34] VITALS: BP 115/70; PULSE 74; TEMP 98.2; O2SAT 97
--- NOTE | 2025-07-26 12:37 | Discharge Summary ---
Discharge Summary Date of Service July 26, 2025 Principal Dx & Hospital Course #1 = Principal Diagnosis (1) Fever: 79-year-old woman with PMH of congenital stenosis of aortic valve, peripheral vascular disease, rheumatoid arthritis, chronic kidney disease, hypertension, osteoarthritis, history of a flutter, s/p cardiac pacemaker, history of mechanical heart valve, dementia who is currently living at dementia unit in [facility] was brought in because of fevers and diarrhea. As per [facility] patient was having fevers on day of presentation and also incontinent of the stool and nauseous but no vomiting which prompted the [facility] to send the patient to the ER. At baseline, she is oriented to person and place, Ambulates without support. Fevers Diarrhea Respiratory BioFire negative UA negative CT chest and CT abdomen pelvis no acute findings Procalcitonin negative Received empiric cefepime in the ER Blood culture in 1 of 4 bottles from 07/19/25 just turned positive to [facility] this AM. Blood culture PCR negative Fever was only recorded on 07/19/25 and last diarrhea was on 07/20/25 ID recommends following up repeat BCx from yesterday off antibiotics. 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 - found on CT chest - ff up as outpatient Dementia Currently residing at dementia unit in [facility] Delirium precautions History of CHF Continue home Lasix with potassium supplements Hypertension Losartan held as BP borderline BP stable off Losartan, monitor On Lasix Monitor History of mechanical valve replacement (Now bioprosthetic based on TTE below) Used to be on Coumadin Admitting Provider checked with [facility] that currently she is not on Coumadin Son not sure exactly but thinks had another surgery and valve replaced (likely bioprosthetic, as evidenced in TTE) and thinks since then not on Coumadin Mild elevation of troponin Initial troponin 44-55 TTE noted mild conc LVH, borderline global hypokinesis of left ventricle, apical wall motion abnormality may reflect pacemaker activation, EF 45-50%, mod dil LA, mild dil RA, bioprosthetic AV, normal gradient for AV, no AR, trace MR, mild TR No prior TTE to compare -- ff up with building specialist as outpatient Depression On fluoxetine DVT prophylaxis - Heparin subcu CODE STATUS DNR/DNI and comfort measures only but okay for antibiotics as per POLST form. return to [facility] Notes For Next Care Provider Medication Changes From Visit Losartan discontinued Admission HPI Per Admitting Provider 79-year-old female with past medical history significant for congenital stenosis of aortic valve, peripheral vascular disease, rheumatoid arthritis, chronic kidney disease, hypertension, osteoarthritis, history of a flutter, s/p cardiac pacemaker, history of mechanical heart valve who is currently living at dementia unit in [facility] home was brought in because of fevers and di arrhea. As per [facility] patient was having fevers today and also incontinent of the stool and nauseous but no vomiting which prompted the [facility] to send the patient to the ER. As per [facility] the patient knows her name and sometimes knows the place. Ambulates without support. Eats okay. Currently patient tell her name. Denies any pain. Could not get any history from the patient. Able to update son later in am. Past medical history. As mentioned above. Past surgical history. Pacemaker. Social history. Unavailable Family history. No available Admission Exam Per Admitting Provider General- Not in acute distress Head- atraumatic Eyes- PERRL. ENT- oropharynx clear Neck- supple, no JVD. Lungs- clear to auscultation no wheezing or crackles Heart- regular rhythm; no murmur, no gallop. Abdomen- normal bowel sounds, soft, nontender, no distension Extremities- no pretibial edema, no erythema seen Neuro- alert, oriented x 1;not obeying commands Discharge Exam General- oriented x 0, not in distress, speaks in sentences with no effort or accessory muscle use Eyes- anicteric Neck- no JVD Lungs- clear breath sounds bilaterally, no rales/wheezes Heart- normal rate, regular rhythm; no murmurs Abdomen- normal bowel sounds, nondistended, soft, nontender Extremities- no pretibial edema, no calf tenderness Neuro- alert, oriented x 0; no gross focal neurologic deficits Skin- warm & dry Updated Medication List Medication Instructions Recorded Confirmed Type acetaminophen 325 mg tablet 650 mg PO Q4H PRN PAIN/FEVER 07/19/25 07/19/25 History (Tylenol) calcium 600 mg (as 2 tab PO DAILY 07/19/25 07/19/25 History carbonate)-vitamin D3 10 mcg (400 unit) tablet (Calcium 600 + D(3)) fluoxetine 20 mg capsule 20 mg PO DAILY 07/19/25 07/19/25 History furosemide 40 mg tablet 40 mg PO DAILY 07/19/25 07/19/25 History loperamide 2 mg capsule 2 mg PO Q8H PRN AFTER LOOSE STOOLS 07/19/25 07/19/25 History melatonin 5 mg capsule 5 mg PO HS 07/19/25 07/19/25 History multivitamin 1 tab PO DAILY 07/19/25 07/19/25 History oxymetazoline 0.05 % nasal spray 2 spray intranasal QID PRN NOSE 07/19/25 07/19/25 History (Nasal Decongestant BLEEDS (oxymetazoline)) potassium chloride 20 mEq 20 meq PO DAILY 07/19/25 07/19/25 History tablet,extended release(part/cryst) sodium chloride 0.65 % nasal spray 1 spray intranasal 5XD 07/19/25 07/19/25 History aerosol (Saline Nasal) Hospital Stay Data Consultations 07/19/25 21:01 ED Decision to Admit Stat 07/23/25 11:38 Consult Infectious Diseases Routine Diagnostic Imagining Performed Laboratory Results WBC 5.36 K/ul (4.8-10.8) 07/25/25 13:03 RBC 3.94 M/uL (4.20-5.40) L 07/25/25 13:03 Hgb 13.2 g/dL (12.0-16.0) 07/25/25 13:03 Hct 38.6 % (37.0-47.0) 07/25/25 13:03 MCV 98.0 fL (80.0-100.0) 07/25/25 13:03 MCH 33.5 pg (25.0-34.0) 07/25/25 13:03 MCHC 34.2 g/dL (32.0-36.0) 07/25/25 13:03 RDW Std Deviation 51.8 fL (36.4-46.3) H 07/25/25 13:03 RDW Coeff of Mikhail 14.6 % (11.5-14.5) H 07/25/25 13:03 Plt Count 159 K/uL (130-400) 07/25/25 13:03 MPV 9.7 fL (9.4-12.4) 07/25/25 13:03 Immature Gran % (Auto) 0.6 % 07/20/25 05:39 Neut % (Auto) 87.1 % 07/20/25 05:39 Lymph % (Auto) 4.5 % 07/20/25 05:39 Long % (Auto) 7.7 % 07/20/25 05:39 Eos % (Auto) 0.0 % 07/20/25 05:39 Baso % (Auto) 0.1 % 07/20/25 05:39 Neut # (Auto) 9.47 K/uL (1.40-6.50) H 07/20/25 05:39 Lymph # (Auto) 0.49 K/uL (1.20-3.40) L 07/20/25 05:39 Long # (Auto) 0.84 K/uL (0.11-0.59) H 07/20/25 05:39 Eos # (Auto) 0.00 K/uL (0.00-0.50) 07/20/25 05:39 Baso # (Auto) 0.01 K/uL (0.00-0.20) 07/20/25 05:39 Immature Gran # (Auto) 0.06 K/uL (0.01-0.20) 07/20/25 05:39 Sodium 133 mmol/L (136-145) L 07/25/25 13:03 Potassium 4.4 mmol/L (3.5-5.1) 07/25/25 13:03 Chloride 97 mmol/L (98-107) L 07/25/25 13:03 Carbon Dioxide 27 mmol/L (21-32) 07/25/25 13:03 Anion Gap 9 (3-11) 07/25/25 13:03 BUN 23 mg/dl (6-23) 07/25/25 13:03 Creatinine 1.11 mg/dl (0.6-1.2) 07/25/25 13:03 Est Cr Clr Drug Dosing 28.2 ml/min 07/25/25 13:03 eGFR 50.25 07/25/25 13:03 BUN/Creatinine Ratio 20.7 (10-20) H 07/25/25 13:03 Glucose 135 mg/dl (70-99(Fasting)) H 07/25/25 13:03 Lactate 1.8 mmol/L (0.4-2.0) 07/19/25 19:14 Calcium 10.9 mg/dl (8.6-10.3) H 07/25/25 13:03 Magnesium 1.9 mg/dl (1.7-2.4) 07/20/25 05:39 Total Bilirubin 2.1 mg/dl (0.2-1.0) H 07/19/25 16:56 Direct Bilirubin 0.7 mg/dl (0-0.2) H 07/19/25 16:56 AST 30 U/L (13-39) 07/19/25 16:56 ALT 11 U/L (7-52) 07/19/25 16:56 Alkaline Phosphatase 66 U/L (34-104) 07/19/25 16:56 Troponin I High Sens 55.7 pg/ml (0-14) H* 07/20/25 05:39 Total Protein 7.9 gm/dl (6.0-8.3) 07/19/25 16:56 Albumin 4.6 gm/dl (3.4-5.0) 07/19/25 16:56 Procalcitonin 0.07 ng/ml (0-0.5) 07/19/25 16:56 Urine Color Yellow 07/19/25 Unknown Urine Appearance Clear (Clear) 07/19/25 Unknown Urine pH 6.5 (4.5-7.5) 07/19/25 Unknown Ur Specific [place] 1.010 (1.000-1.030) 07/19/25 Unknown Urine Protein 2+ (Negative) H 07/19/25 Unknown Urine Glucose (UA) Negative (Negative) 07/19/25 Unknown Urine Ketones Negative (Negative) 07/19/25 Unknown Urine Blood Negative (Negative) 07/19/25 Unknown Urine Nitrite Negative (Negative) 07/19/25 Unknown Urine Bilirubin Negative (Negative) 07/19/25 Unknown Urine Urobilinogen Negative (Negative) 07/19/25 Unknown Ur Leukocyte Esterase Negative (Negative) 07/19/25 Unknown Urine WBC (Auto) 0-5 /hpf (0-5) 07/19/25 Unknown Urine RBC (Auto) 0-2 /hpf (0-2) 07/19/25 Unknown U Hyaline Cast (Auto) 6-10 /lpf (0-2) H 07/19/25 Unknown U Epithel Cells (Auto) 0-2 /hpf (0-2) 07/19/25 Unknown Urine Bacteria (Auto) None Seen (None Seen) 07/19/25 Unknown Hyaline Casts Present /lpf (None Presnt) A 07/19/25 Unknown Urine Comment 07/19/25 Unknown Adenovirus (PCR) Not Detected (NotDetected) 07/19/25 16:30 B. pertussis DNA (PCR) Not Detected (NotDetected) 07/19/25 16:30 B.parapertussis DNA PCR Not Detected (NotDetected) 07/19/25 16:30 C. pneumoniae DNA (PCR) Not Detected (NotDetected) 07/19/25 16:30 Coronavirus OC43 (PCR) Not Detected (NotDetected) 07/19/25 16:30 Coronavirus HKU1 (PCR) Not Detected (NotDetected) 07/19/25 16:30 Coronavirus 229E (PCR) Not Detected (NotDetected) 07/19/25 16:30 SARS-CoV-2 (PCR) NEGATIVE (Negative) 07/19/25 16:30 SARS-CoV-2 (PCR) Not Detected (NotDetected) 07/19/25 16:30 Coronavirus NL63 (PCR) Not Detected (NotDetected) 07/19/25 16:30 Human Metapneumovir PCR Not Detected (NotDetected) 07/19/25 16:30 Influenza Type A (PCR) Negative (Neg) 07/19/25 16:30 Influenza Type A (PCR) Not Detected (NotDetected) 07/19/25 16:30 Influenza Type B (PCR) Negative (Neg) 07/19/25 16:30 Influenza Type B (PCR) Not Detected (NotDetected) 07/19/25 16:30 M. pneumoniae (PCR) Not Detected (NotDetected) 07/19/25 16:30 Parainfluenza 1 (PCR) Not Detected (NotDetected) 07/19/25 16:30 Parainfluenza 2 (PCR) Not Detected (NotDetected) 07/19/25 16:30 Parainfluenza 3 (PCR) Not Detected (NotDetected) 07/19/25 16:30 Parainfluenza 4 (PCR) Not Detected (NotDetected) 07/19/25 16:30 RSV (RT-PCR) Negative (Neg) 07/19/25 16:30 RSV (PCR) Not Detected (NotDetected) 07/19/25 16:30 Entero/Rhino (PCR) Not Detected (NotDetected) 07/19/25 16:30 Bld Cult ID Panel PCR PCR Panel Negative (NotDetected) 07/19/25 16:56 Impressions Chest X-Ray 07/19/25 16:51 EXAM: X-ray chest one-view portable CLINICAL HISTORY: Sepsis PRIORS: CT chest today TECHNIQUE: Frontal view chest FINDINGS: The chest is well-expanded. Severe enlargement of the cardiac silhouette with postsurgical change including median sternotomy wires, prostatic cardiac valve and pacing device. Low-dose Elevation of the right Silvestre diaphragm noted. Osseous demineralization seen. Trachea midline. Osseous structures demonstrate no acute abnormality. No radiopaque foreign body. IMPRESSION: Extreme enlargement of the cardiac silhouette. ACT 112: Positive. There are findings on this examination that require communication between the performing entity and the patient following Patient Test Result Information Act ([place] ACT 112) guidelines. Electronically signed by Bernarda Linares 07-19-2025 6:52 PM Abdomen/Pelvis CT 07/19/25 17:37 CT of the abdomen and pelvis with contrast Technique: Postcontrast axial images of the abdomen and pelvis. Coronal and sagittal reformatted images made well for review. No comparison Findings: Hepatomegaly Splenomegaly. Mild intra-abdominal ascites. Distention of the IVC consistent with pulmonary vas congestion or right heart failure. Gallbladder is within normal limits. Cholelithiasis.Subcentimeter hypodensity left kidney too small for further density characterization but likely representing a cyst thickening of the left adrenal gland. Gastric varices present. Findings suggestive of portal hypertension. Moderate amount of stool within the colon. No free air or intestinal obstruction. Vascular calcifications. Remaining solid abdominal organs are unremarkable in appearance. Bone windows demonstrate no focal abnormality. Multilevel degenerative changes of the lower thoracic and lumbar spine. Impression: Unremarkable exam CT abdomen pelvis negative for acute intra-abdominal pathology Mild intra-abdominal ascites Findings consistent with mild portal hypertension with gastric varices. Electronically signed by Alli Kuo 07-19-2025 8:[address] 07/19/25 17:38 CT of the chest with contrast Technique: Postcontrast axial images of the chest. Coronal and sagittal reformatted images made available for review No comparison Findings: Right chest wall dual-lead intracardiac device Marked cardiomegaly. Postoperative changes median sternotomy. Aortic valve calcification. 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 Mild interlobular septal thickening with diffuse ground glass opacities scattered throughout the lungs bilaterally. No effusions. No lobar consolidations. There are extensive right chest wall venous collaterals sugg consistent with occlusion of the right subclavian vein. The internal jugular vein is patent. Multilevel degenerative changes of the thoracic spine without fracture or dislocation. Impression Findings consistent with mild pulmonary edema. Electronically signed by Alli Kuo 07-19-2025 8:19 PM 07/19/25 17:37 CT abd pelvis IV con only Stat 07/19/25 17:38 CT chest diagnostic w con Stat Pending Results Patient Have Any Pending Studies at Discharge: No Discharge Instructions Given to Patient (Per Discharging Provider) LOSARTAN DISCONTINUED BLOOD PRESSURE IS WELL CONTROLLED OFF LOSARTAN. PLEASE CALL YOUR PRIMARY CARE PHYSICIAN OR RETURN TO THE ER IF WITH WORSENING OF SYMPTOMS, INCLUDING FEVER/CHILLS, DIARRHEA, ETC FOLLOW UP WITH PRIMARY CARE PHYSICIAN IN 1 WEEK. Total Time Total Time Spent Total Time Spent (In Minutes): 35 minutes
== END 2025-07-26 15:10 | disposition home or self-care (01) | DRG 392 ==
LOC: ED 16:32 → SUATTDRO 21:55 → 2N 21:55 → 3W 07-23 21:47
DX: R15.9 Full incontinence of feces; Z66 Do not resuscitate; Z95.2 Presence of prosthetic heart valve; R19.7 Diarrhea, unspecified; Z95.0 Presence of cardiac pacemaker; F03.90 Unspecified dementia, unspecified severity, without behavioral disturbance, psychotic disturbance, mood disturbance, and anxiety; I13.0 Hypertensive heart and chronic kidney disease with heart failure and stage 1 through stage 4 chronic kidney disease, or unspecified chronic kidney disease; I77.810 Thoracic aortic ectasia; R32 Unspecified urinary incontinence; R50.9 Fever, unspecified; M06.9 Rheumatoid arthritis, unspecified; R79.89 Other specified abnormal findings of blood chemistry; F32.A Depression, unspecified; Z87.74 Personal history of (corrected) congenital malformations of heart and circulatory system; N18.9 Chronic kidney disease, unspecified; I73.9 Peripheral vascular disease, unspecified; I50.9 Heart failure, unspecified